=== PATIENT | male | born 1960 | race Caucasian/White ===

== ENCOUNTER 2017-08-03 08:08 | Inpatient (IN) | payer BC ==
[2017-08-03] VITALS (15 sets, daily range): BP systolic 132–156; BP diastolic 77–98
[~2017-08-03] VITALS: Ht 180.3 cm; Wt 79.6 kg
[~2017-08-03 08:08] MED LIST: AC500T; GLIM4TAB PO; HYDR-3454 PO; HYDR-3458 PO; IBUP-1773 PO; INSASP10V; INSU100V6 SQ; LANTUS; LEVO500T2 PO; PHEN-640 PO; SITA1TAB6 PO; ZLP5T; nyquil
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
[2017-08-03] MEDS ORDERED: fentaNYL INJECTION 100 MCG/2 ML AMP IM ONE (08:45)
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
[2017-08-03 10:11] LABS: BASOPHILS % (AUTO) 0 % (0-10); EOSINOPHILS # (AUTO) 0.1 10^3/uL (0.0-0.3); EOSINOPHILS % (AUTO) 1 % (0-10); LYMPHOCYTES # (AUTO) 1.6 X 10^3 (1.0-4.0); LYMPHOCYTES % (AUTO) 15 % (12-44); MEAN CORPUSCULAR HEMOGLOBIN 29 PG (25-34); MEAN CORPUSCULAR HGB CONC 35 G/DL (32-36); MEAN CORPUSCULAR VOLUME 82 FL (80-99); MEAN PLATELET VOLUME 10.4 FL (7.4-10.4); MONOCYTES # (AUTO) 0.5 X 10^3 (0.0-1.0); MONOCYTES % (AUTO) 4 % (0-12); NEUTROPHILS # (AUTO) 8.5 X 10^3 (1.8-7.8); NEUTROPHILS % (AUTO) 79 % (42-75); PLATELET COUNT 222 10^3/uL (130-400); RED BLOOD COUNT 5.14 10^6/uL (4.35-5.85); RED CELL DISTRIBUTION WIDTH 12.6 % (10.0-14.5); WHITE BLOOD COUNT 10.7 10^3/uL (4.3-11.0)
[2017-08-03] MEDS ORDERED: fentaNYL INJECTION 100 MCG/2 ML AMP IVP ONE (10:15)
[2017-08-03 10:30] LABS: ALANINE AMINOTRANSFERASE 20 U/L (0-55); ALBUMIN 4.6 GM/DL (3.2-4.5); ALCOHOL < 10 MG/DL (<10); ANION GAP 11 MMOL/L (5-14); ASPARTATE AMINO TRANSFERASE 19 U/L (5-34); BILIRUBIN,TOTAL 0.8 MG/DL (0.1-1.0); BLOOD UREA NITROGEN 16 MG/DL (7-18); BUN/CREATININE RATIO 16; CALCIUM 10.2 MG/DL (8.5-10.1); CARBON DIOXIDE 26 MMOL/L (21-32); CHLORIDE 105 MMOL/L (98-107); CREATININE SERUM 0.99 MG/DL (0.60-1.30); GFR ESTIMATED > 60; GLUCOSE 237 MG/DL (70-105); POTASSIUM 4.2 MMOL/L (3.6-5.0); SODIUM 142 MMOL/L (135-145); TOTAL PROTEIN 7.2 GM/DL (6.4-8.2)
--- NOTE | 2017-08-03 11:02 | Diagnostic Imaging Report ---
PROCEDURE: CT cervical spine without contrast. TECHNIQUE: Multiple contiguous axial images were obtained through the cervical spine without the use of intravenous contrast. Sagittal and coronal reformations were then performed. INDICATION: Neck pain. FINDINGS: There is suspected alignment of the cervical spine. The vertebral body heights are preserved. Disc heights are also preserved. There is satisfactory alignment at the facet joints. Also satisfactory alignment at the lateral masses of C1 and C2 is seen. Focal calcifications of the anterior longitudinal ligament at C5-C6 and C6-C7 levels noted. No significant posterior osteophytes seen. There is minimal rotation of C1 over C2, probably positional. No widening of the predental space. No fracture is seen. IMPRESSION: Slight rotation of C1 over C2 without widening of the predental space or fracture. This is likely positional. Dictated by: Dictated on workstation # [id number]
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
[2017-08-03] MEDS: fentaNYL INJECTION 100 MCG/2 ML AMP IVP PRN ×3 (11:58→16:34)
[2017-08-03] MEDS: NS IV 1000 ML 1,000 ML IV SCH ×2 (12:12→23:48)
[2017-08-03] MEDS: inSUlin ASPART (NovoLOG) 1 UNIT/0.01 ML (CHARGE PER UNIT) SC SCH ×3 (12:53→20:42)
[2017-08-03] MEDS ORDERED: IBUP-30 PO (13:13)
[2017-08-03] MEDS ORDERED: INFLUENZA TRIvalent 2017-2018 0.5 ML/45 MCG SYR IM ONE (13:15)
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
[2017-08-03] MEDS ORDERED: inSUlin ASPART (NovoLOG) 1 UNIT/0.01 ML (CHARGE PER UNIT) SC SCH (16:00)
[2017-08-03 17:08] LABS: BILIRUBIN,URINE NEGATIVE (NEGATIVE); KETONES,URINE NEGATIVE (NEGATIVE); LEUKOCYTE ESTERASE ,URINE NEGATIVE (NEGATIVE); NITRITE,URINE NEGATIVE (NEGATIVE); PH,URINE 6 (5-9); PROTEIN,URINE 1+ (NEGATIVE); UROBILINOGEN,URINE NORMAL (NORMAL)
[2017-08-03] MEDS: HYDROmorphone (DILAUDID) 2 MG/ML VIAL IV PRN ×3 (17:24→23:48)
[2017-08-03] MEDS: LIDOCAINE (LIDODERM) 5% PATCH TOP SCH (18:31)
[2017-08-03] MEDS: oxyCODONE/APAP 5/325MG (PERCOCET 5) TABLET PO PRN (18:38)
[2017-08-03] MEDS: inSUlin DETERMIR 1 UNIT/0.01 ML (LEVEMIR) CHARGE PER UNIT SQ SCH (20:42)
[2017-08-03] MEDS: LIDODERM PATCH REMOVAL TP SCH (20:43)
[2017-08-04] VITALS (25 sets, daily range): BP systolic 130–173; BP diastolic 66–111
[2017-08-04] MEDS: HYDROmorphone (DILAUDID) 2 MG/ML VIAL IV PRN ×5 (03:14→19:42)
[2017-08-04] MEDS: oxyCODONE/APAP 5/325MG (PERCOCET 5) TABLET PO PRN ×3 (03:15→13:28)
[2017-08-04 04:12] LABS: BASOPHILS % (AUTO) 0 % (0-10); EOSINOPHILS # (AUTO) 0.1 10^3/uL (0.0-0.3); EOSINOPHILS % (AUTO) 1 % (0-10); LYMPHOCYTES # (AUTO) 1.3 X 10^3 (1.0-4.0); LYMPHOCYTES % (AUTO) 14 % (12-44); MEAN CORPUSCULAR HEMOGLOBIN 29 PG (25-34); MEAN CORPUSCULAR HGB CONC 35 G/DL (32-36); MEAN CORPUSCULAR VOLUME 84 FL (80-99); MEAN PLATELET VOLUME 10.8 FL (7.4-10.4); MONOCYTES # (AUTO) 0.6 X 10^3 (0.0-1.0); MONOCYTES % (AUTO) 7 % (0-12); NEUTROPHILS # (AUTO) 7.3 X 10^3 (1.8-7.8); NEUTROPHILS % (AUTO) 78 % (42-75); PLATELET COUNT 213 10^3/uL (130-400); RED BLOOD COUNT 4.85 10^6/uL (4.35-5.85); RED CELL DISTRIBUTION WIDTH 12.7 % (10.0-14.5); WHITE BLOOD COUNT 9.4 10^3/uL (4.3-11.0)
[2017-08-04 04:31] LABS: ANION GAP 12 MMOL/L (5-14); BLOOD UREA NITROGEN 12 MG/DL (7-18); BUN/CREATININE RATIO 14; CARBON DIOXIDE 24 MMOL/L (21-32); CHLORIDE 107 MMOL/L (98-107); CREATININE SERUM 0.86 MG/DL (0.60-1.30); GFR ESTIMATED > 60; GLUCOSE 191 MG/DL (70-105); PHOSPHORUS 2.6 MG/DL (2.3-4.7); POTASSIUM 3.6 MMOL/L (3.6-5.0); SODIUM 143 MMOL/L (135-145)
[2017-08-04] MEDS: POTASSIUM CL 10MEQ/50ML IVPB 50 ML IV SCH (05:17)
[2017-08-04] MEDS: MAGNESIUM 1 GM/100 ML IVPB 100 ML IV SCH (05:18)
[2017-08-04] MEDS: KCL 20 MEQ TAB (K-DUR) PO SCH (05:18)
[2017-08-04] MEDS: inSUlin ASPART (NovoLOG) 1 UNIT/0.01 ML (CHARGE PER UNIT) SC SCH ×4 (05:19→21:27)
[2017-08-04] MEDS: lisINopril 5 MG (PRINIVIL) TABLET PO SCH (08:38)
[2017-08-04] MEDS: NS IV 1000 ML 1,000 ML IV SCH ×2 (08:39→17:47)
[2017-08-04] MEDS: LIDOCAINE (LIDODERM) 5% PATCH TOP SCH (08:39)
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
[2017-08-04] MEDS ORDERED: 1/2 NS IV SOLUTION 1,000 ML IV PRN (08:55)
[2017-08-04] MEDS ORDERED: ANTACID SUSP 30 ML UDC (MYLANTA) PO PRN (09:00)
[2017-08-04] MEDS ORDERED: SENNA W/DOCUSATE (SENOKOT S) TABLET PO PRN (09:00)
[2017-08-04] MEDS ORDERED: LORazepam INJ 2 MG/ML (ATIVAN) VIAL IM/IV PRN (09:00)
[2017-08-04] MEDS ORDERED: D5 1/2 NS 1000 ML IV SOLUTION 1,000 ML IV PRN (09:00)
[2017-08-04] MEDS ORDERED: LORazepam 1 MG (ATIVAN) TAB PO PRN (09:00)
[2017-08-04] MEDS ORDERED: KCL 20 MEQ TAB (K-DUR) PO ONE (09:00)
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
--- NOTE | 2017-08-04 13:14 | Progress Note (SOAP) ---
Subjective Date Seen by Provider: Aug 04, 2017 Time Seen by Provider: 13:12 Subjective/Events-last exam Feels ok in brace, but still hurting a fair bit. No neuro symptoms. Objective Exam Vital Signs Date Time Temp Pulse Resp B/P (MAP) Pulse Ox O2 Delivery O2 Flow Rate FiO2 08/04/17 07:20 98.4 87 12 160/100 97 Room Air 08/04/17 07:00 92 08/04/17 06:00 93 18 173/111 95 Room Air 08/04/17 05:17 98.9 Room Air 08/04/17 05:00 97 18 163/105 95 Room Air 08/04/17 04:00 99 12 162/102 98 Room Air 08/04/17 03:00 94 17 160/93 94 Room Air 08/04/17 02:00 92 13 153/97 94 Room Air 08/04/17 01:32 98.5 Room Air 08/04/17 01:00 91 08/04/17 01:00 93 12 150/97 93 Room Air 08/04/17 00:00 91 12 148/91 91 Room Air 08/03/17 23:00 92 16 146/95 94 Room Air 08/03/17 22:00 95 14 141/91 94 Room Air 08/03/17 21:00 97 16 144/90 95 Room Air 08/03/17 20:00 98 20 143/92 96 Room Air 08/03/17 19:30 98.9 Room Air 08/03/17 19:00 98 21 142/96 96 Room Air 08/03/17 19:00 98 08/03/17 18:00 98 18 132/88 96 Room Air 08/03/17 17:00 94 14 137/87 96 Room Air 08/03/17 16:02 99.0 08/03/17 16:00 94 26 145/98 97 Room Air 08/03/17 15:55 Room Air 08/03/17 15:00 99 20 138/87 96 Room Air Capillary Refill : Less Than 3 SecondsLess Than 3 Seconds General Appearance: No Apparent Distress Respiratory: Chest Non Tender Cardiovascular: Regular Rate, Rhythm Gastrointestinal: non tender, soft Extremity: Normal Capillary Refill, Normal Range of Motion Neurologic/Psychiatric: Alert, Oriented x3, No Motor/Sensory Deficits Other comments MRI with no soft tissue or ligamentous injury that is significant. L1 burst only, no high grade canal compromise. Results Lab Laboratory Tests 08/03/17 17:00: Urine Color YELLOW, Urine Clarity CLEAR, Urine pH 6, Urine Specific [place] 1.020, Urine Protein 1+H, Urine Glucose (UA) 4+H, Urine Ketones NEGATIVE, Urine Nitrite NEGATIVE, Urine Bilirubin NEGATIVE, Urine Urobilinogen NORMAL, Urine Leukocyte Esterase NEGATIVE, Urine RBC (Auto) NEGATIVE, Urine RBC NONE, Urine WBC NONE, Urine Squamous Epithelial Cells NONE, Urine Crystals NONE, Urine Bacteria NEGATIVE, Urine Casts NONE, Urine Mucus NEGATIVE, Urine Culture Indicated NO, Urine Opiates Screen NEGATIVE, Urine Oxycodone Screen NEGATIVE, Urine Methadone Screen NEGATIVE, Urine Propoxyphene Screen NEGATIVE, Urine Barbiturates Screen NEGATIVE, Ur Tricyclic Antidepressants Screen NEGATIVE, Urine Phencyclidine Screen NEGATIVE, Urine Amphetamines Screen NEGATIVE, Urine Methamphetamines Screen NEGATIVE, Urine Benzodiazepines Screen NEGATIVE, Urine Cocaine Screen NEGATIVE, Urine Cannabinoids Screen NEGATIVE 08/03/17 17:28: Glucometer 204H 08/04/17 03:45: White Blood Count 9.4, Red Blood Count 4.85, Hemoglobin 14.2, Hematocrit 41, Mean Corpuscular Volume 84, Mean Corpuscular Hemoglobin 29, Mean Corpuscular Hemoglobin Concent 35, Red Cell Distribution Width 12.7, Platelet Count 213, Mean Platelet Volume 10.8H, Neutrophils (%) (Auto) 78H, Lymphocytes (%) (Auto) 14, Monocytes (%) (Auto) 7, Eosinophils (%) (Auto) 1, Basophils (%) (Auto) 0, Neutrophils # (Auto) 7.3, Lymphocytes # (Auto) 1.3, Monocytes # (Auto) 0.6, Eosinophils # (Auto) 0.1, Basophils # (Auto) 0.0, Sodium Level 143, Potassium Level 3.6, Chloride Level 107, Carbon Dioxide Level 24, Anion Gap 12, Blood Urea Nitrogen 12, Creatinine 0.86, Estimat Glomerular Filtration Rate > 60, BUN/ Creatinine Ratio 14, Glucose Level 191H, Calcium Level 9.0, Phosphorus Level 2.6 , Magnesium Level 2.0 08/04/17 11:11: Glucometer 163H Assessment/Plan Assessment/Plan Assess & Plan/Chief Complaint L1 burst Fracture: Work on mobilization in brace Pain control Clinical Quality Measures DVT/VTE Risk/Contraindication: Risk Factor Score Per Nursin RFS Level Per Nursing on Admit: 4+=Very High CARLOS ALBERTO BURKETT MD Aug 04, 2017 1:14 pm
[2017-08-04] MEDS ORDERED: oxyCODONE/APAP 5/325MG (PERCOCET 5) TABLET ONE (13:17)
[2017-08-04] MEDS: ONDANSETRON 4 MG/2 ML (SDV) Z0FRAN IV PRN (15:17)
[2017-08-04] MEDS: LORazepam INJ 2 MG/ML (ATIVAN) VIAL IV PRN ×2 (18:23→19:47)
[2017-08-04] MEDS: ONDANSETRON 4 MG (ZOFRAN) ORAL DISSOLVE TAB SL PRN (19:42)
[2017-08-04] MEDS: inSUlin DETERMIR 1 UNIT/0.01 ML (LEVEMIR) CHARGE PER UNIT SQ SCH (21:27)
[2017-08-04] MEDS: DOCUSATE SODIUM 100 MG (COLACE) CAP PO SCH (21:28)
[2017-08-04] MEDS: LIDODERM PATCH REMOVAL TP SCH (21:28)
[2017-08-05] VITALS (22 sets, daily range): BP systolic 122–167; BP diastolic 76–111
[2017-08-05] MEDS: oxyCODONE/APAP 5/325MG (PERCOCET 5) TABLET PO PRN ×3 (01:49→22:14)
[2017-08-05] MEDS: LORazepam INJ 2 MG/ML (ATIVAN) VIAL IV PRN ×2 (01:49→04:18)
[2017-08-05] MEDS: ONDANSETRON 4 MG/2 ML (SDV) Z0FRAN IV PRN ×2 (01:50→11:59)
[2017-08-05] MEDS: NS IV 1000 ML 1,000 ML IV SCH (03:56)
[2017-08-05] MEDS: HYDROmorphone (DILAUDID) 2 MG/ML VIAL IV PRN ×3 (03:57→18:44)
[2017-08-05 05:01] LABS: BASOPHILS % (AUTO) 0 % (0-10); EOSINOPHILS # (AUTO) 0.2 10^3/uL (0.0-0.3); EOSINOPHILS % (AUTO) 2 % (0-10); LYMPHOCYTES # (AUTO) 1.5 X 10^3 (1.0-4.0); LYMPHOCYTES % (AUTO) 14 % (12-44); MEAN CORPUSCULAR HEMOGLOBIN 29 PG (25-34); MEAN CORPUSCULAR HGB CONC 34 G/DL (32-36); MEAN CORPUSCULAR VOLUME 85 FL (80-99); MEAN PLATELET VOLUME 10.8 FL (7.4-10.4); MONOCYTES # (AUTO) 0.7 X 10^3 (0.0-1.0); MONOCYTES % (AUTO) 6 % (0-12); NEUTROPHILS # (AUTO) 8.2 X 10^3 (1.8-7.8); NEUTROPHILS % (AUTO) 77 % (42-75); PLATELET COUNT 213 10^3/uL (130-400); RED BLOOD COUNT 4.74 10^6/uL (4.35-5.85); RED CELL DISTRIBUTION WIDTH 12.5 % (10.0-14.5); WHITE BLOOD COUNT 10.6 10^3/uL (4.3-11.0)
[2017-08-05 05:19] LABS: ANION GAP 12 MMOL/L (5-14); BLOOD UREA NITROGEN 11 MG/DL (7-18); BUN/CREATININE RATIO 15; CALCIUM 8.6 MG/DL (8.5-10.1); CARBON DIOXIDE 19 MMOL/L (21-32); CHLORIDE 108 MMOL/L (98-107); CREATININE SERUM 0.73 MG/DL (0.60-1.30); GFR ESTIMATED > 60; GLUCOSE 201 MG/DL (70-105); MAGNESIUM 1.7 MG/DL (1.8-2.4); PHOSPHORUS 2.1 MG/DL (2.3-4.7); POTASSIUM 3.8 MMOL/L (3.6-5.0); SODIUM 139 MMOL/L (135-145)
[2017-08-05] MEDS: KCL 20 MEQ TAB (K-DUR) PO SCH (05:36)
[2017-08-05] MEDS: POTASSIUM CL 10MEQ/50ML IVPB 50 ML IV SCH (05:36)
[2017-08-05] MEDS: MAGNESIUM 1 GM/100 ML IVPB 100 ML IV SCH ×3 (05:36→06:46)
[2017-08-05] MEDS: inSUlin ASPART (NovoLOG) 1 UNIT/0.01 ML (CHARGE PER UNIT) SC SCH ×5 (05:37→20:45)
[2017-08-05] MEDS ORDERED: LABETALOL HCL 20 MG/4 ML VIAL IV ONE (06:00)
[2017-08-05] MEDS: THIAMINE 100 MG (VITAMIN B-1) TAB PO SCH (09:00)
[2017-08-05] MEDS: DOCUSATE SODIUM 100 MG (COLACE) CAP PO SCH ×2 (09:00→20:06)
[2017-08-05] MEDS: lisINopril 5 MG (PRINIVIL) TABLET PO SCH (09:00)
[2017-08-05] MEDS: MULTIVIT W/MINERALS TAB (THERAGRAN M) PO SCH (09:01)
[2017-08-05] MEDS: ONDANSETRON 4 MG (ZOFRAN) ORAL DISSOLVE TAB SL PRN ×2 (09:01→16:04)
[2017-08-05] MEDS: LIDOCAINE (LIDODERM) 5% PATCH TOP SCH (09:01)
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
--- NOTE | 2017-08-05 11:14 | Progress Note (SOAP) ---
Subjective Date Seen by Provider: Aug 05, 2017 Time Seen by Provider: 11:12 Subjective/Events-last exam [place] from Ativan protocol. Was up with brace yesterday, doing ok. History from who is nurse and very involved. Objective Exam Vital Signs Date Time Temp Pulse Resp B/P (MAP) Pulse Ox O2 Delivery O2 Flow Rate FiO2 08/05/17 09:00 113 24 140/89 95 Room Air 08/05/17 08:00 115 24 146/96 94 Room Air 08/05/17 07:00 112 08/05/17 07:00 99.1 115 29 143/94 94 Room Air 08/05/17 06:00 116 23 125/83 92 Room Air 08/05/17 05:00 144 23 144/87 95 Room Air 08/05/17 04:00 129 25 166/111 96 Room Air 08/05/17 03:00 129 30 167/104 96 Room Air 08/05/17 02:00 120 22 163/109 97 Room Air 08/05/17 01:00 110 11 144/100 95 Room Air 08/05/17 01:00 111 08/05/17 00:00 107 19 138/90 98 Room Air 08/04/17 23:00 112 23 130/94 97 Room Air 08/04/17 22:00 112 19 135/80 97 Room Air 08/04/17 21:00 115 19 150/95 96 Room Air 08/04/17 20:00 115 21 145/96 96 Room Air 08/04/17 19:49 97.5 Room Air 08/04/17 19:00 118 08/04/17 19:00 112 22 154/96 95 Room Air 08/04/17 18:00 103 22 164/103 97 Room Air 08/04/17 17:00 98 22 146/86 95 Room Air 08/04/17 16:00 98.6 08/04/17 16:00 92 21 146/98 97 Room Air 08/04/17 15:00 93 24 154/94 96 Room Air 08/04/17 14:00 90 20 149/66 97 Room Air 08/04/17 13:00 89 17 154/100 95 Room Air 08/04/17 13:00 94 08/04/17 12:00 92 19 157/99 97 Room Air 08/04/17 12:00 98.0 Capillary Refill : Less Than 3 SecondsLess Than 3 Seconds General Appearance: No Apparent Distress Respiratory: No Accessory Muscle Use, No Respiratory Distress Cardiovascular: Regular Rate, Rhythm Neurologic/Psychiatric: No Motor/Sensory Deficits, Depressed Affect Other comments TLSO in place. Results Lab Laboratory Tests 08/04/17 17:01: Glucometer 232H 08/04/17 21:25: Glucometer 178H 08/05/17 04:30: White Blood Count 10.6, Red Blood Count 4.74, Hemoglobin 13.7, Hematocrit 40, Mean Corpuscular Volume 85, Mean Corpuscular Hemoglobin 29, Mean Corpuscular Hemoglobin Concent 34, Red Cell Distribution Width 12.5, Platelet Count 213, Mean Platelet Volume 10.8H, Neutrophils (%) (Auto) 77H, Lymphocytes (%) (Auto) 14, Monocytes (%) (Auto) 6, Eosinophils (%) (Auto) 2, Basophils (%) (Auto) 0, Neutrophils # (Auto) 8.2H, Lymphocytes # (Auto) 1.5, Monocytes # (Auto) 0.7, Eosinophils # (Auto) 0.2, Basophils # (Auto) 0.0, Sodium Level 139, Potassium Level 3.8, Chloride Level 108H, Carbon Dioxide Level 19L, Anion Gap 12, Blood Urea Nitrogen 11, Creatinine 0.73, Estimat Glomerular Filtration Rate > 60, BUN/ Creatinine Ratio 15, Glucose Level 201H, Calcium Level 8.6, Phosphorus Level 2.1L, Magnesium Level 1.7L Microbiology 08/03/17 MRSA Screen - Final, Complete Assessment/Plan Assessment/Plan Assess & Plan/Chief Complaint L1 burst Fracture: ETOH Withdrawl Nothing different from our standpoint. Continue current care. Clinical Quality Measures DVT/VTE Risk/Contraindication: Risk Factor Score Per Nursin RFS Level Per Nursing on Admit: 4+=Very High CARLOS ALBERTO BURKETT MD Aug 05, 2017 11:14 am
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
[2017-08-05] MEDS: ENOXAPARIN 40 MG/0.4 ML (LOVENOX) SYR SC SCH (14:23)
[2017-08-05] MEDS: inSUlin DETERMIR 1 UNIT/0.01 ML (LEVEMIR) CHARGE PER UNIT SQ SCH (20:45)
[2017-08-05] MEDS: LIDODERM PATCH REMOVAL TP SCH (20:45)
[2017-08-06] VITALS (21 sets, daily range): BP systolic 121–169; BP diastolic 87–106
[2017-08-06] MEDS: oxyCODONE/APAP 5/325MG (PERCOCET 5) TABLET PO PRN ×5 (02:13→18:04)
[2017-08-06] MEDS ORDERED: hydrALAZINE (APESOLINE) 20 MG/ML VIAL ONE (03:43)
[2017-08-06] MEDS ORDERED: hydrALAZINE (APESOLINE) 20 MG/ML VIAL IV ONE (04:15)
[2017-08-06] MEDS: HYDROmorphone (DILAUDID) 2 MG/ML VIAL IV PRN ×2 (04:59→12:13)
[2017-08-06] MEDS: MULTIVIT W/MINERALS TAB (THERAGRAN M) PO SCH (06:12)
[2017-08-06] MEDS: THIAMINE 100 MG (VITAMIN B-1) TAB PO SCH (06:13)
[2017-08-06 06:14] LABS: ANION GAP 9 MMOL/L (5-14); BLOOD UREA NITROGEN 15 MG/DL (7-18); BUN/CREATININE RATIO 18; CALCIUM 8.9 MG/DL (8.5-10.1); CARBON DIOXIDE 23 MMOL/L (21-32); CHLORIDE 106 MMOL/L (98-107); CREATININE SERUM 0.83 MG/DL (0.60-1.30); GFR ESTIMATED > 60; GLUCOSE 201 MG/DL (70-105); MAGNESIUM 1.9 MG/DL (1.8-2.4); SODIUM 138 MMOL/L (135-145)
[2017-08-06] MEDS: inSUlin ASPART (NovoLOG) 1 UNIT/0.01 ML (CHARGE PER UNIT) SC SCH ×4 (06:19→21:15)
[2017-08-06] MEDS: POTASSIUM CL 10MEQ/50ML IVPB 50 ML IV SCH (06:38)
[2017-08-06] MEDS: KCL 20 MEQ TAB (K-DUR) PO SCH (06:39)
[2017-08-06] MEDS: MAGNESIUM 1 GM/100 ML IVPB 100 ML IV SCH (06:39)
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
[2017-08-06] MEDS ORDERED: MILK OF MAGNESIA 400 MG/5 ML 30 ML UDC PO NR (07:00)
[2017-08-06] MEDS: DOCUSATE SODIUM 100 MG (COLACE) CAP PO SCH ×2 (07:38→21:16)
[2017-08-06] MEDS: lisINopril 5 MG (PRINIVIL) TABLET PO SCH (10:15)
[2017-08-06] MEDS: LIDOCAINE (LIDODERM) 5% PATCH TOP SCH (10:16)
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
[2017-08-06] MEDS: ENOXAPARIN 40 MG/0.4 ML (LOVENOX) SYR SC SCH (12:03)
--- NOTE | 2017-08-06 14:07 | Physical Therapy Daily Note ---
PT Daily Note-Current Subjective Patient states his soreness is about the same as it was this a.m. Patient is laying in bed and agrees to PT. Pain Numeric Pain Scale: 9 Location: Left Location Body Site: Back Comment: localized back pain Appearance Patient appears healthy. He is left post tx in his chair with his son. Mental Status Patient Orientation: Normal For Age Transfers Functional [place] Measure 0=Not Assessed/NA 4=Minimal Assistance 1=Total Assistance 5=Supervision or Setup 2=Maximal Assistance 6=Modified [place] 3=Moderate Assistance 7=Complete IndependenceIRFPAI Quality Coding Scale 6 Independent with activity with or without an assistive device 5 Patient requires set up or clean up by helper. Patient completes activity by themselves 4 Supervision or touching assist (CGA). [place] provide cues , steadying assist 3 The helper provides less than half the effort to complete the activity 2 The helper provides more than half the effort to complete the activity 1 Dependent. The helper does all the effort to complete an activity 7 Patient refused to complete or attempt activity 9 The patient did not perform the activity before the current illness or injury 88 Not attempted due to Medical conditions or safety concerns Transfers (B, C, W/C) (FIM): 4 Scootin Rollin Supine to/from Sit: 5 Sit to/from Stand: 4 Patient requires CGA to min assist with standing due to intense pain from positional change. Weight Bearing Right Lower Extremity: Right Weight Bearing/Tolerated Left Lower Extremity: Left Weight Bearing/Tolerated Gait Training Gait (FIM): 5 Distance: >300' Gait Level of Assist: 5 Gait Persons Needed: 1 Gait Assistive Device: FWW Patient is unsteady with first few steps after rising to stand and when turning. Patient eventually walks with a more normal reciprocal gait. Assessment Current Status: Good Progress Patient appears to tolerate transfers and gait better this p.m. than in the a.m. PT will continue to work with patient on gait tolerance as well as safety and education. PT Senior Living Goals Senior Living Goals PT Senior Living Goals Time Frame: Aug 13, 2017 Transfers (B,C,W/C) (FIM): 6 Gait (FIM): 6 Distance: >300' Gait Level of Assist: 6 Gait Assistive Device: FWW PT Plan Problem List Problem List: Activity Tolerance, Functional Strength, Safety, Balance, Gait Treatment/Plan Treatment Plan: Continue Plan of Care Treatment Plan: Functional Activity Alejandro, Functional Strength, Gait, Therapeutic Exercise Treatment Duration: Aug 13, 2017 Frequency: 11 times per week Estimated Hrs Per Day: .5 hour per day Patient and/or Family Agrees t: Yes Time/GCodes Time In: 1325 Time Out: 1345 Total Billed Treatment Time: 20 Total Billed Treatment 1 visit GT 20 min TANYA PINEDO PT Aug 06, 2017 14:06
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
[2017-08-06] MEDS: inSUlin DETERMIR 1 UNIT/0.01 ML (LEVEMIR) CHARGE PER UNIT SQ SCH (21:16)
[2017-08-06] MEDS: LIDODERM PATCH REMOVAL TP SCH (21:19)
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
[2017-08-07] VITALS: BP 146/81
[2017-08-07] MEDS: oxyCODONE/APAP 5/325MG (PERCOCET 5) TABLET PO PRN ×3 (00:25→08:45)
[2017-08-07 04:00] VITALS: BP 144/78
[2017-08-07 06:37] LABS: ANION GAP 11 MMOL/L (5-14); BLOOD UREA NITROGEN 12 MG/DL (7-18); BUN/CREATININE RATIO 16; CALCIUM 8.9 MG/DL (8.5-10.1); CARBON DIOXIDE 23 MMOL/L (21-32); CHLORIDE 106 MMOL/L (98-107); CREATININE SERUM 0.76 MG/DL (0.60-1.30); GFR ESTIMATED > 60; GLUCOSE 157 MG/DL (70-105); POTASSIUM 3.8 MMOL/L (3.6-5.0); SODIUM 140 MMOL/L (135-145)
[2017-08-07] MEDS: THIAMINE 100 MG (VITAMIN B-1) TAB PO SCH (06:42)
[2017-08-07] MEDS: MULTIVIT W/MINERALS TAB (THERAGRAN M) PO SCH (06:42)
[2017-08-07] MEDS: inSUlin ASPART (NovoLOG) 1 UNIT/0.01 ML (CHARGE PER UNIT) SC SCH (06:42)
[2017-08-07 07:53] VITALS: BP 165/91
[2017-08-07] MEDS: lisINopril 5 MG (PRINIVIL) TABLET PO SCH (08:33)
[2017-08-07] MEDS: DOCUSATE SODIUM 100 MG (COLACE) CAP PO SCH (08:33)
[2017-08-07] MEDS: LIDOCAINE (LIDODERM) 5% PATCH TOP SCH (08:33)
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
[2017-08-07] MEDS ORDERED: LISI-556 PO (10:17)
--- NOTE | 2017-08-07 10:18 | Discharge Instructions ---
Discharge Instructions Patient Instructions Goal/Follow Up Appt: Mobilization for home discharge Activity & Diet Discharge Diet: ADA Diet Activity as Tolerated: Yes BLAIRE MONTANEZ MD Aug 07, 2017 10:18
[2017-08-07] MEDS ORDERED: HYDR2TAB6 PO (10:23)
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
== END 2017-08-07 11:00 | DRG 552 ==
LOC: EDUNIT# 08:08 → ER 08:09 → ICU 10:26 → 4TH 08-06 18:28
PROVIDERS: ADMIT Surgery; ATTEND Surgery
DX: S32.011A Stable burst fracture of first lumbar vertebra, initial encounter for closed fracture (principal); E11.9 Type 2 diabetes mellitus without complications; Z79.4 Long term (current) use of insulin; F10.230 Alcohol dependence with withdrawal, uncomplicated; K59.00 Constipation, unspecified; V57.0XXA Driver of pick-up truck or van injured in collision with fixed or stationary object in nontraffic accident, initial encounter
CPT/HCPCS: 36415; 72125; 72148; 74176; 80048; 80053; 80306; 80320; 81000; 82962; 83735; 84100; 85025; 87081; 94664; 96372; 96374

== ENCOUNTER 2017-08-07 10:07 | Inpatient (IN) | payer BC ==
[~2017-08-07] VITALS: Ht 180.3 cm; Wt 67.9 kg
[~2017-08-07 10:07] MED LIST changes: +IBUP-30 PO
[2017-08-07] MEDS ORDERED: LISI-556 PO (10:17)
[2017-08-07] MEDS ORDERED: HYDR2TAB6 PO (10:23)
[2017-08-07 11:00] VITALS: BP 173/110
[2017-08-07 11:10] VITALS: BP 180/90
[2017-08-07] MEDS ORDERED: 1/2 NS IV SOLUTION 1,000 ML IV PRN (11:45)
[2017-08-07] MEDS ORDERED: LORazepam 1 MG (ATIVAN) TAB PO PRN (11:45)
[2017-08-07] MEDS ORDERED: ANTACID SUSP 30 ML UDC (MYLANTA) PO PRN (11:45)
[2017-08-07] MEDS ORDERED: LORazepam INJ 2 MG/ML (ATIVAN) VIAL IM/IV PRN (11:45)
[2017-08-07] MEDS ORDERED: ONDANSETRON 4 MG (ZOFRAN) ORAL DISSOLVE TAB SL PRN (11:45)
--- NOTE | 2017-08-07 11:50 | Physical Therapy Progress Note ---
Therapy Progress Note Evaluation attempted but patient had elevated blood pressure of 180/100. Will attempt evaluation again after blood pressure is under control. SHARI DC PT Aug 07, 2017 11:50
[2017-08-07] MEDS: lisINopril 20 MG (ZESTRIL) TAB PO SCH (12:09)
--- NOTE | 2017-08-07 12:47 | Occ Therapy Progress Note ---
Therapy Progress Note Evaluation initiated when pt arrived to ARU. Pt requested to transfer from w/c to bed secondary to pain. Pt required min assist for task. Nurse aide present to take vitals. BP was elevated and pt was placed on hold for therapies at this time per RN. Will attempt to complete evaluation when BP is under control. 1 visit, 10minutes KENZIE ROTH OT Aug 07, 2017 12:47
[2017-08-07 12:50] VITALS: BP 160/80
[2017-08-07] MEDS: HYDROmorphone (DILAUDID) 2 MG TAB PO SCH ×3 (13:23→20:55)
[2017-08-07] MEDS: ENOXAPARIN 40 MG/0.4 ML (LOVENOX) SYR SC SCH (13:25)
--- NOTE | 2017-08-07 13:47 | Physical Therapy Progress Note ---
Therapy Progress Note Patient continues to have elevated BP 187/100. PT to evaluate when BP is stable. TANYA PINEDO PT Aug 07, 2017 13:47
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
--- NOTE | 2017-08-07 13:57 | Speech Therapy Progress Note ---
Therapy Progress Note Speech pathology consult received and the patient's chart was reviewed. At this time, the patient is placed on medical hold due to elevated blood pressure. Speech pathology will reattempt initial evaluation, as able. ADRIAN DELGADO Aug 07, 2017 13:57
[2017-08-07] MEDS ORDERED: INFLUENZA TRIvalent 2017-2018 0.5 ML/45 MCG SYR IM ONE (15:45)
[2017-08-07] MEDS: GLIMEPIRIDE 4 MG (AMARYL) TAB PO SCH (16:18)
[2017-08-07] MEDS: metFORMIN 500 MG (GLUCOPHAGE) TAB PO SCH (16:19)
[2017-08-07] MEDS: IBUPROFEN 600 MG (MOTRIN) TAB PO PRN (16:19)
[2017-08-07] MEDS: inSUlin ASPART (NovoLOG) 1 UNIT/0.01 ML (CHARGE PER UNIT) SC SCH ×2 (16:19→21:01)
[2017-08-07 18:08] VITALS: BP 170/96
--- NOTE | 2017-08-07 20:19 | PM&R Post Admission Assessment ---
Post Admission Physician Asses The preadmission screen agrees with the post admission assessment that the patient is a good candidate for inpatient rehabilitation. The patient will have a comprehensive program of inpatient rehabilitation with a goal of maximizing level of functional independence prior to discharge home with spouse. The patient will have PT/OT ninety minutes per day, each discipline, five days a week for gait, strengthening, conditioning, balance, ADLs, any patient/family/caregiver training as necessary. Speech therapy to do cognitive assessment and treat as indicated. Rehabilitation nursing to assist with bowel, bladder, skin, wound care, medication administration, pain management. Senior Etl Developer to assist with discharge planning, community reentry. SCD's for DVT prophylaxis. He appears to be well motivated to participate in three hours of therapy a day. He should be able to tolerate three hours of therapy a day from a medical standpoint. He should benefit from the three hours of therapy a day. He has a reasonable discharge plan, reasonable discharge rehabilitation goals and a supportive family. He has various comorbidities that need to be closely monitored with medications and treatments adjusted on a daily basis as needed. These include: DM Pain management Poorly controlled HTN Barriers to discharge for this patient who had been independent prior to this are for him to be modified independent to supervision for ADLs and mobility skills prior to discharge home with spouse, so as to lessen the burden of the caregivers.Consideration must be given to the fact that the TLSO may limit his complete [place] until d/cd by orthospine. Risks for this patient include: 1. Fall 2. Fracture 3. DVT 4. Pulmonary embolism 5. Wound infection 6. Skin breakdown 7. Contractures 8. Poorly controlled pain 9. Urinary retention 10. UTI 11. Respiratory infection 12. Aspiration 13. Worsening control of HTN 14.Poorly controlled DM 15. Worsening Compression fracture with mobilization Estimated Length of Stay: 10-14 days Prognosis: Rehab prognosis appears good for goal of discharge home with spouse modified independent to supervision for ADLs and mobility skills.taking into consideration the need for TLSO short term GUERO ESPINAL MD Aug 07, 2017 20:19
[2017-08-07] MEDS: DOCUSATE SODIUM 100 MG (COLACE) CAP PO SCH (20:55)
[2017-08-07] MEDS: inSUlin DETERMIR 1 UNIT/0.01 ML (LEVEMIR) CHARGE PER UNIT SQ SCH (21:02)
[2017-08-07] MEDS: LIDODERM PATCH REMOVAL TP SCH ×2 (21:03→21:17)
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
[2017-08-08] MEDS: IBUPROFEN 600 MG (MOTRIN) TAB PO PRN ×4 (01:22→23:58)
[2017-08-08] MEDS: inSUlin ASPART (NovoLOG) 1 UNIT/0.01 ML (CHARGE PER UNIT) SC SCH ×4 (05:43→20:53)
[2017-08-08 05:58] VITALS: BP 157/94
[2017-08-08] MEDS: MULTIVIT W/MINERALS TAB (THERAGRAN M) PO SCH (06:23)
[2017-08-08] MEDS: GLIMEPIRIDE 4 MG (AMARYL) TAB PO SCH ×2 (06:24→16:14)
[2017-08-08] MEDS: metFORMIN 500 MG (GLUCOPHAGE) TAB PO SCH ×2 (06:24→16:15)
[2017-08-08] MEDS: DOCUSATE SODIUM 100 MG (COLACE) CAP PO SCH ×2 (08:27→20:41)
[2017-08-08] MEDS: LIDOCAINE (LIDODERM) 5% PATCH TOP SCH ×2 (08:27→09:06)
[2017-08-08] MEDS: HYDROmorphone (DILAUDID) 2 MG TAB PO SCH ×3 (08:27→20:42)
[2017-08-08] MEDS: lisINopril 20 MG (ZESTRIL) TAB PO SCH (08:27)
[2017-08-08] MEDS: LINAGLIPTIN (TRADJENTA) 5 MG TABLET PO SCH (08:27)
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
[2017-08-08] MEDS ORDERED: LACTULOSE SYRUP 10GM/15ML (ENULOSE) 30ML UDC PO PRN (11:15)
[2017-08-08] MEDS ORDERED: BISACODYL 10 MG SUPP (DULCOLAX) PR PRN (11:15)
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
[2017-08-08] MEDS: amLODIPine 5 MG (NORVASC) TAB PO SCH (11:23)
[2017-08-08] MEDS: ENOXAPARIN 40 MG/0.4 ML (LOVENOX) SYR SC SCH (12:15)
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
--- NOTE | 2017-08-08 12:58 | Occupational Ther Daily Note ---
OT Current Status-Daily Note Subjective Pt. states that he did not sleep well last night. Appearance Pt. in bed. Agrees to work with OT. Mental Status/Objective Patient Orientation: Person, Place, Time, Situation Functional [place] Measure 0=Not Assessed/NA 4=Minimal Assistance 1=Total Assistance 5=Supervision or Setup 2=Maximal Assistance 6=Modified [place] 3=Moderate Assistance 7=Complete [place] Attachments: IV ADL-Treatment Functional [place] Measure 0=Not Assessed/NA 4=Minimal Assistance 1=Total Assistance 5=Supervision or Setup 2=Maximal Assistance 6=Modified [place] 3=Moderate Assistance 7=Complete IndependenceIRFPAI Quality Coding Scale 6 Independent with activity with or without an assistive device 5 Patient requires set up or clean up by helper. Patient completes activity by themselves 4 Supervision or touching assist (CGA). [place] provide cues , steadying assist 3 The helper provides less than half the effort to complete the activity 2 The helper provides more than half the effort to complete the activity 1 Dependent. The helper does all the effort to complete an activity 7 Patient refused to complete or attempt activity 9 The patient did not perform the activity before the current illness or injury 88 Not attempted due to Medical conditions or safety concerns Grooming (FIM): 5 (Set up at bed level.) Bathing (FIM): 4 (Min assist to wash feet only at bed/supine level.) Shower/Bathe Self (QC): 4 Upper Body (FIM): 2 (Overall, pt. requires max assist to don TLSO brace in supine, and mod assist to doff/don shirt while supine in bed.) Upper Body Dressing (QC): 2 Lower Body Dressing (FIM): 3 (Mod assist overall in supine position using AE to don/doff clothing.) Lower Body Dressing (QC): 3 On/Off Footwear (QC): 2 Transfers (B, C, W/C) (FIM): 4 Due to strict precautions of pt. having to have TLSO brace on when out of bed, pt. has to spongebathe while in supine position until this can be clarified with physician. BP taken throughout treatment. BP is 163/94, 166/93, 164/94. When pt. rolled to side, BP taken again and 78/59. Nursing called pt. in room. At this time, TLSO brace was donned in supine position and then pt. sat on side of bed with min assist. BP taken again and is 178/90. Pt laid back down with SBA and brace on. All needs met and spouse in room. Education OT Patient Education: Correct positioning, Modified ADL techniques, Progress toward Goal/Update tx plan, Purpose of tx/functional activities, Reviewed precautions, Rehab process, Transfer techniques, Use of adapted equipment Teaching Recipient: Patient Teaching Methods: Demonstration, Discussion Response to Teaching: Verbalize Understanding, Return Demonstration OT Short Term Goals Short Term Goals Time Frame: Aug 14, 2017 Eating(FIM): 6 Grooming(FIM): 6 Bathing(FIM): 5 Upper Body Dressing(FIM): 5 Lower Body Dressing(FIM): 5 Toileting(FIM): 5 Transfers (B,C,W/C) (FIM): 6 Toilet/Commode Transfer(FIM): 5 Shower Transfer(FIM): 4 Additional Short Term Goals: 1-Demonstrate ADL Tasks, 2-Verbalize Understanding , 3-ImproveStrength/Alejandro 1=Demonstrate adherence to instructed precautions during ADL tasks. 2=Patient will verbalize/demonstrate understanding of assistive devices/ modifications for ADL. 3=Patient will improve strength/tolerance for activity to enable patient to perform ADL's. OT Private Duty Rn Goals Private Duty Rn Goals Time Frame: Aug 21, 2017 Eating (FIM): 6 Eating (QC): 6 Groomin Oral Hygiene (QC): 6 Bathing(FIM): 5 Shower/Bathe Self (QC): 5 Upper Body Dressing(FIM): 6 Upper Body Dressing (QC): 5 Lower Body Dressing(FIM): 6 Lower Body Dressing (QC): 5 On/Off Footwear (QC): 5 Toileting(FIM): 6 Toileting Hygiene (QC): 6 Transfers (B,C,W/C) (FIM): 6 Toilet/Commode Transfer(FIM): 6 Toilet/Commode Transfer (QC): 5 Shower Transfer(FIM): 5 Additional Goals: 1-Demonstrate ADL Tasks, 2-Verbalize Understanding, 3- ImproveStrength/Alejandro 1=Demonstrate adherence to instructed precautions during ADL tasks. 2=Patient will verbalize/demonstrate understanding of assistive devices/ modifications for ADL. 3=Patient will improve strength/tolerance for activity to enable patient to perform ADL's. OT Education/Plan Problem List/Assessment Assessment: Decreased Activ Tolerance, Decreased UE Strength, Dependent Transfers, Impaired Bed Mobility, Impaired I ADL's, Impaired Self-Care Skills, Restricted Funct UE ROM Discharge Recommendations Plan/Recommendations: Continue POC Therapy D/C Recommendations: Home w/ Family Support, Occupational Therapy Home Care Equpiment Recommendations-D/C: Extended Bath Bench, Hip Kit Target Placement Home with spouse. Treatment Plan/Plan of Care Treatment,Training & Education: Yes Patient would benefit from OT for education, treatment and training to promote independence in ADL's, mobility, safety and/or upper extremity function for ADL' s. Plan of Care: ADL Retraining, Functional Mobility, Group Exercise/Act as Ind, UE Funct Exercise/Act Treatment Duration: Aug 21, 2017 Frequency: At least 5 of 7 days/Wk (IRF) Estimated Hrs Per Day: 1.5 hours per day Agreement: Yes Rehab Potential: Fair Time/GCodes Start Time: 08:30 Stop Time: 09:35 Total Time Billed (hr/min): 65 Billed Treatment Time 1, ADL x 4 HILARIA GOMEZ OT Aug 08, 2017 12:58
--- NOTE | 2017-08-08 15:36 | Physical Therapy Daily Note ---
PT Daily Note-Current Subjective Patient is in quite a bit of pain upon PT entering the room after just working with OT this p.m. Patient agrees to PT. Pain Numeric Pain Scale: 8 Location: Left Location Body Site: Back Mental Status Patient Orientation: Person, Place, Situation Transfers Functional Faith Measure 0=Not Assessed/NA 4=Minimal Assistance 1=Total Assistance 5=Supervision or Setup 2=Maximal Assistance 6=Modified [place] 3=Moderate Assistance 7=Complete IndependenceIRFPAI Quality Coding Scale 6 Independent with activity with or without an assistive device 5 Patient requires set up or clean up by helper. Patient completes activity by themselves 4 Supervision or touching assist (CGA). [place] provide cues , steadying assist 3 The helper provides less than half the effort to complete the activity 2 The helper provides more than half the effort to complete the activity 1 Dependent. The helper does all the effort to complete an activity 7 Patient refused to complete or attempt activity 9 The patient did not perform the activity before the current illness or injury 88 Not attempted due to Medical conditions or safety concerns No transfers observed. Patient remained supine for the treatment due to current pain. Weight Bearing Right Lower Extremity: Right Weight Bearing/Tolerated Left Lower Extremity: Left Weight Bearing/Tolerated Gait Training Does the Patient Walk?: Yes Exercises Supine Ex: Lower trunk rotation, Knee to chest, Straight leg raise, Hip abd/add Supine Reps: 20 (patient also performed SKTC and piriformis stretches 10 x 15") Assessment Current Status: Poor Progress Patient is still in significant pain due to burst fx of L1 vertebrae. PT will progress patient exercise as patient's pain tolerates. PT Short Term Goals Short Term Goals Time Frame: Aug 15, 2017 Transfers (B,C,W/C) (FIM): 6 Gait (FIM): 5 Gait Distance Comment: >300' Gait Level of Assist: 5 Gait Assistive Device: FWW PT Fci Goals Garage Helper Goals PT Garage Helper Goals Time Frame: Aug 29, 2017 Transfers (B,C,W/C) (FIM): 6 Sit to Lying (QC): 6 Lying-Sitting on Side/Bed(QC): 6 Sit to Stand (QC): 6 Rollin Roll Left to Right (QC): 6 Car Transfer (QC): 4 Gait (FIM): 6 Distance: 400' Walk 10 feet (QC): 6 Walk 10ft-Uneven Surface(QC): 6 Walk 50ft with 2 Turns (QC): 6 Walk 150 ft (QC): 6 Gait Assistive Device: FWW Stairs (FIM): 2 # of Steps: 4 1 Step (curb) (QC): 4 4 Steps (QC): 4 Stairs Level Of Assist: 5 PT Plan Problem List Problem List: Activity Tolerance, Functional Strength, Safety, Balance, Gait, Transfer, Bed Mobility, ROM Treatment/Plan Treatment Plan: Continue Plan of Care Treatment Plan: Bed Mobility, Education, Functional Activity Alejandro, Functional Strength, Group Therapy, Gait, Safety, Therapeutic Exercise, Transfers Treatment Duration: Aug 29, 2017 Frequency: At least 5 of 7 days/Wk (IRF) Estimated Hrs Per Day: 1.5 hours per day Patient and/or Family Agrees t: Yes Safety Risks/Education Patient Education: Correct Positioning, Safety Issues Teaching Recipient: Patient Teaching Methods: Demonstration, Discussion Response to Teaching: Reinforcement Needed Time/GCodes Time In: 1455 Time Out: 1528 Total Billed Treatment Time: 33 Total Billed Treatment 1 visit EX x 2 33 min SHARI DC PT Aug 08, 2017 15:36
--- NOTE | 2017-08-08 15:45 | Occupational Ther Daily Note ---
OT Current Status-Daily Note Subjective Pt. reports 10/10 pain in back after getting up and coming to dining area with OT. Pt. has already had pain medication from nursing. Appearance Pt. in bed. Spouse in room and has already assisted him with back brace. Agrees to work with OT. Mental Status/Objective Patient Orientation: Person, Place, Time, Situation Functional [place] Measure 0=Not Assessed/NA 4=Minimal Assistance 1=Total Assistance 5=Supervision or Setup 2=Maximal Assistance 6=Modified [place] 3=Moderate Assistance 7=Complete [place] ADL-Treatment Functional [place] Measure 0=Not Assessed/NA 4=Minimal Assistance 1=Total Assistance 5=Supervision or Setup 2=Maximal Assistance 6=Modified [place] 3=Moderate Assistance 7=Complete IndependenceIRFPAI Quality Coding Scale 6 Independent with activity with or without an assistive device 5 Patient requires set up or clean up by helper. Patient completes activity by themselves 4 Supervision or touching assist (CGA). [place] provide cues , steadying assist 3 The helper provides less than half the effort to complete the activity 2 The helper provides more than half the effort to complete the activity 1 Dependent. The helper does all the effort to complete an activity 7 Patient refused to complete or attempt activity 9 The patient did not perform the activity before the current illness or injury 88 Not attempted due to Medical conditions or safety concerns Transfers (B, C, W/C) (FIM): 4 (Pt. transfers with CGA supine-sit and sit- stand. Ambulates around therapy dining area with multiple sit down rest breaks with CGA.) Other Treatment Pt. agreed to work with OT. Transferred to side of bed and then ambulated to therapy dining area. Sat in chair and began to participate in fine motor task of nut/bolt activity. However, pt. had difficulty with sitting in one place and continually had to shift weight as pain was high with seated pressure. Stood to ambulate to attempt to relieve pressure. States that this helps, but not much. Sat again and attempted task again. However, began to report significant pain again. Ambulated around unit again with CGA and walker. Pt. very slow and ambulated back to room. Transferred back to bed and all needs met. Able to transfer sit-supine with SBA while wearing TLSO brace. Education OT Patient Education: Correct positioning, Modified ADL techniques, Progress toward Goal/Update tx plan, Purpose of tx/functional activities, Reviewed precautions, Rehab process, Transfer techniques Teaching Recipient: Patient Teaching Methods: Demonstration, Discussion Response to Teaching: Verbalize Understanding, Return Demonstration OT Short Term Goals Short Term Goals Time Frame: Aug 14, 2017 Eating(FIM): 6 Grooming(FIM): 6 Bathing(FIM): 5 Upper Body Dressing(FIM): 5 Lower Body Dressing(FIM): 5 Toileting(FIM): 5 Transfers (B,C,W/C) (FIM): 6 Toilet/Commode Transfer(FIM): 5 Shower Transfer(FIM): 4 Additional Short Term Goals: 1-Demonstrate ADL Tasks, 2-Verbalize Understanding , 3-ImproveStrength/Alejandro 1=Demonstrate adherence to instructed precautions during ADL tasks. 2=Patient will verbalize/demonstrate understanding of assistive devices/ modifications for ADL. 3=Patient will improve strength/tolerance for activity to enable patient to perform ADL's. OT Professional Driver Goals Skilled Nursing Goals Time Frame: Aug 21, 2017 Eating (FIM): 6 Eating (QC): 6 Groomin Oral Hygiene (QC): 6 Bathing(FIM): 5 Shower/Bathe Self (QC): 5 Upper Body Dressing(FIM): 6 Upper Body Dressing (QC): 5 Lower Body Dressing(FIM): 6 Lower Body Dressing (QC): 5 On/Off Footwear (QC): 5 Toileting(FIM): 6 Toileting Hygiene (QC): 6 Transfers (B,C,W/C) (FIM): 6 Toilet/Commode Transfer(FIM): 6 Toilet/Commode Transfer (QC): 5 Shower Transfer(FIM): 5 Additional Goals: 1-Demonstrate ADL Tasks, 2-Verbalize Understanding, 3- ImproveStrength/Alejandro 1=Demonstrate adherence to instructed precautions during ADL tasks. 2=Patient will verbalize/demonstrate understanding of assistive devices/ modifications for ADL. 3=Patient will improve strength/tolerance for activity to enable patient to perform ADL's. OT Education/Plan Problem List/Assessment Assessment: Decreased Activ Tolerance, Impaired Funct Balance, Impaired I ADL's , Impaired Self-Care Skills Discharge Recommendations Plan/Recommendations: Continue POC Therapy D/C Recommendations: Home w/ Family Support, Occupational Therapy Home Care Equpiment Recommendations-D/C: Extended Bath Bench, Hip Kit Treatment Plan/Plan of Care Treatment,Training & Education: Yes Patient would benefit from OT for education, treatment and training to promote independence in ADL's, mobility, safety and/or upper extremity function for ADL' s. Plan of Care: ADL Retraining, Functional Mobility, Group Exercise/Act as Ind, UE Funct Exercise/Act Treatment Duration: Aug 21, 2017 Frequency: At least 5 of 7 days/Wk (IRF) Estimated Hrs Per Day: 1.5 hours per day Agreement: Yes Rehab Potential: Fair Time/GCodes Start Time: 14:30 Stop Time: 15:00 Total Time Billed (hr/min): 30 Billed Treatment Time 1, FA x 2 HILARIA GOMEZ OT Aug 08, 2017 15:45
[2017-08-08 17:47] VITALS: BP 159/90
[2017-08-08] MEDS: inSUlin DETERMIR 1 UNIT/0.01 ML (LEVEMIR) CHARGE PER UNIT SQ SCH (20:42)
[2017-08-08] MEDS: POLYETHYLENE GLYCOL 17 GM (MIRALAX) PACK PO SCH (20:43)
[2017-08-08] MEDS: SENNA W/DOCUSATE (SENOKOT S) TABLET PO SCH (20:44)
[2017-08-08] MEDS: LIDODERM PATCH REMOVAL TP SCH (21:06)
[2017-08-09] MEDS: HYDROmorphone (DILAUDID) 2 MG TAB PO SCH ×4 (03:08→21:19)
[2017-08-09 05:49] VITALS: BP 140/96
[2017-08-09] MEDS: GLIMEPIRIDE 4 MG (AMARYL) TAB PO SCH ×2 (06:10→16:53)
[2017-08-09] MEDS: MULTIVIT W/MINERALS TAB (THERAGRAN M) PO SCH (06:10)
[2017-08-09] MEDS: metFORMIN 500 MG (GLUCOPHAGE) TAB PO SCH ×2 (06:10→16:53)
[2017-08-09] MEDS: IBUPROFEN 600 MG (MOTRIN) TAB PO PRN ×3 (06:10→18:05)
[2017-08-09] MEDS: inSUlin ASPART (NovoLOG) 1 UNIT/0.01 ML (CHARGE PER UNIT) SC SCH ×4 (06:11→21:19)
[2017-08-09 08:11] VITALS: BP 136/84
[2017-08-09] MEDS: amLODIPine 5 MG (NORVASC) TAB PO SCH (08:13)
[2017-08-09] MEDS: LINAGLIPTIN (TRADJENTA) 5 MG TABLET PO SCH (08:13)
[2017-08-09] MEDS: lisINopril 20 MG (ZESTRIL) TAB PO SCH (08:13)
[2017-08-09] MEDS: LIDOCAINE (LIDODERM) 5% PATCH TOP SCH (08:15)
[2017-08-09] MEDS: POLYETHYLENE GLYCOL 17 GM (MIRALAX) PACK PO SCH ×2 (08:20→21:09)
[2017-08-09] MEDS: DOCUSATE SODIUM 100 MG (COLACE) CAP PO SCH ×2 (08:20→21:09)
[2017-08-09] MEDS: SENNA W/DOCUSATE (SENOKOT S) TABLET PO SCH ×2 (08:20→21:09)
--- NOTE | 2017-08-09 10:58 | Physical Therapy Daily Note ---
PT Daily Note-Current Subjective Patient in bed pre tx, agrees to PT, has pain of 6/10. BP upon sitting is 150/ 96. Appearance Patient BTB post tx with nurse call, phone, tray, all needs met. Mental Status Patient Orientation: Normal For Age TLSO Transfers Functional [place] Measure 0=Not Assessed/NA 4=Minimal Assistance 1=Total Assistance 5=Supervision or Setup 2=Maximal Assistance 6=Modified [place] 3=Moderate Assistance 7=Complete IndependenceIRFPAI Quality Coding Scale 6 Independent with activity with or without an assistive device 5 Patient requires set up or clean up by helper. Patient completes activity by themselves 4 Supervision or touching assist (CGA). [place] provide cues , steadying assist 3 The helper provides less than half the effort to complete the activity 2 The helper provides more than half the effort to complete the activity 1 Dependent. The helper does all the effort to complete an activity 7 Patient refused to complete or attempt activity 9 The patient did not perform the activity before the current illness or injury 88 Not attempted due to Medical conditions or safety concerns Transfers (B, C, W/C) (FIM): 5 Scootin Rollin Supine to/from Sit: 5 Sit to/from Stand: 5 cues for hand placement, he tends to pullup from the walker Weight Bearing Right Lower Extremity: Right Weight Bearing/Tolerated Left Lower Extremity: Left Weight Bearing/Tolerated Gait Training Gait (FIM): 5 Distance: 150', 300'x3 Gait Level of Assist: 5 Gait Persons Needed: 1 Gait Assistive Device: FWW slow, antalgic Exercises Seated Therapy Exercises: Ankle pumps, Long arc quads, Hip abd/add Seated Reps: 20 Standing: Hip Abduction, Hamstring curls, Heel/toe raises, Marching, Mini squats Standing Reps: 20 Treatments bed mobility and transfers, ambulation, functional strengthening Assessment Current Status: Fair Progress improving endurance, still dependent for brace don/doff, significant pain that increased to 9/10 PT Short Term Goals Short Term Goals Time Frame: Aug 15, 2017 Transfers (B,C,W/C) (FIM): 6 Gait (FIM): 5 Gait Distance Comment: >300' Gait Level of Assist: 5 Gait Assistive Device: FWW PT Skilled Nursing Goals Skilled Nursing Goals PT Skilled Nursing Goals Time Frame: Aug 29, 2017 Transfers (B,C,W/C) (FIM): 6 Sit to Lying (QC): 6 Lying-Sitting on Side/Bed(QC): 6 Sit to Stand (QC): 6 Rollin Roll Left to Right (QC): 6 Car Transfer (QC): 4 Gait (FIM): 6 Distance: 400' Walk 10 feet (QC): 6 Walk 10ft-Uneven Surface(QC): 6 Walk 50ft with 2 Turns (QC): 6 Walk 150 ft (QC): 6 Gait Assistive Device: FWW Stairs (FIM): 2 # of Steps: 4 1 Step (curb) (QC): 4 4 Steps (QC): 4 Stairs Level Of Assist: 5 PT Plan Problem List Problem List: Activity Tolerance, Functional Strength, Safety, Balance, Gait, Transfer, Bed Mobility, ROM Treatment/Plan Treatment Plan: Continue Plan of Care Treatment Plan: Bed Mobility, Education, Functional Activity Alejandro, Functional Strength, Group Therapy, Gait, Safety, Therapeutic Exercise, Transfers Treatment Duration: Aug 29, 2017 Frequency: At least 5 of 7 days/Wk (IRF) Estimated Hrs Per Day: 1.5 hours per day Patient and/or Family Agrees t: Yes Safety Risks/Education Patient Education: Gait Training, Transfer Techniques, Correct Positioning, Safety Issues Teaching Recipient: Patient Teaching Methods: Demonstration, Discussion Response to Teaching: Reinforcement Needed Time/GCodes Time In: 1000 Time Out: 1059 Total Billed Treatment Time: 59 Total Billed Treatment 1 visit EX 20' FA 10' GT 29' SHARI DC PT Aug 09, 2017 10:58
[2017-08-09] MEDS: ENOXAPARIN 40 MG/0.4 ML (LOVENOX) SYR SC SCH (12:06)
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
--- NOTE | 2017-08-09 14:32 | Therapy Group Daily Note ---
Therapy Daily Group Note Patient Education Topic Home Safety, Fall Prevention, Exercises Exercises LE Seated Exercise, UE Exercise Other/Notes SP assisted pt with donning back brace. Pt ambulated to PT/OT Group using FWW at close SBA followed by recliner. Pt transferred to recliner for comfort. Pt participated in group including introduction (name, where they're from, worst fall), seated UE and LE EX, explanation of ARU and expectations, as well as weekly ARU meeting. Brain teasers, home safety, fall prevention. Pt actively participated in both EX and verbal descriptions of fall hazards within the house. Pt was wheeled in recliner to room and trasnferred to EOB at end of tx with all needs met. PT and SP helped pt doff back brace. Start Time: 13:00 Stop Time: 14:00 Total Billed Treatment Time: 60 Total Billed Treatment 1, GRP (60m) JUAN J GUPTA APPEALS WRITER Aug 09, 2017 14:32
--- NOTE | 2017-08-09 15:16 | Occupational Ther Daily Note ---
OT Current Status-Daily Note Subjective Pt. states that he slept better last night than the night before. Appearance Pt. in bed. Spouse has already assisted him with spongebath in bed and hair wash. Pt. has same clothes on and spouse brings new clothes while OT in the room. Mental Status/Objective Patient Orientation: Person, Place, Time, Situation Functional [place] Measure 0=Not Assessed/NA 4=Minimal Assistance 1=Total Assistance 5=Supervision or Setup 2=Maximal Assistance 6=Modified [place] 3=Moderate Assistance 7=Complete [place] ADL-Treatment Functional [place] Measure 0=Not Assessed/NA 4=Minimal Assistance 1=Total Assistance 5=Supervision or Setup 2=Maximal Assistance 6=Modified [place] 3=Moderate Assistance 7=Complete IndependenceIRFPAI Quality Coding Scale 6 Independent with activity with or without an assistive device 5 Patient requires set up or clean up by helper. Patient completes activity by themselves 4 Supervision or touching assist (CGA). [place] provide cues , steadying assist 3 The helper provides less than half the effort to complete the activity 2 The helper provides more than half the effort to complete the activity 1 Dependent. The helper does all the effort to complete an activity 7 Patient refused to complete or attempt activity 9 The patient did not perform the activity before the current illness or injury 88 Not attempted due to Medical conditions or safety concerns Upper Body (FIM): 3 (Min assist to doff/don shirt and max assist overall for TLSO brace.) Upper Body Dressing (QC): 3 Lower Body Dressing (FIM): 4 (Pt. able to doff/don pants at bed level using AE with SBA. Able to don socks with AE with mod assist. Pt. is able to don shoes with SBA while seated on side of bed. Shoes have elastic laces in them.) Lower Body Dressing (QC): 4 On/Off Footwear (QC): 5 Transfers (B, C, W/C) (FIM): 4 (Min assist to ambulate due to pain.) Other Treatment Once pt. was up, he ambulated to therapy gym. He attempted to complete armbike , but continually had to stop and shift in his seat. Finally did report 9/10 pain in back and nursing was notified. Nursing provided pain medication. Ambulated several more times with pt. around therapy gym with CGA/Min. Required several brief rest breaks in which pt. had to sit and rest. Went back to room and transferred back to bed. Brace left on as he would be getting back up. Spouse was shown tub transfer bench for home use. Spouse states that she will be purchasing one, as this seems to work well. All needs met. Education OT Patient Education: Correct positioning, Exercise program, Modified ADL techniques, Progress toward Goal/Update tx plan, Purpose of tx/functional activities, Reviewed precautions, Rehab process, Transfer techniques, Use of adapted equipment Teaching Recipient: Patient Teaching Methods: Demonstration, Discussion Response to Teaching: Verbalize Understanding, Return Demonstration OT Short Term Goals Short Term Goals Time Frame: Aug 14, 2017 Eating(FIM): 6 Grooming(FIM): 6 Bathing(FIM): 5 Upper Body Dressing(FIM): 5 Lower Body Dressing(FIM): 5 Toileting(FIM): 5 Transfers (B,C,W/C) (FIM): 6 Toilet/Commode Transfer(FIM): 5 Shower Transfer(FIM): 4 Additional Short Term Goals: 1-Demonstrate ADL Tasks, 2-Verbalize Understanding , 3-ImproveStrength/Alejandro 1=Demonstrate adherence to instructed precautions during ADL tasks. 2=Patient will verbalize/demonstrate understanding of assistive devices/ modifications for ADL. 3=Patient will improve strength/tolerance for activity to enable patient to perform ADL's. OT Mental Telepathist Goals Mental Telepathist Goals Time Frame: Aug 21, 2017 Eating (FIM): 6 Eating (QC): 6 Groomin Oral Hygiene (QC): 6 Bathing(FIM): 5 Shower/Bathe Self (QC): 5 Upper Body Dressing(FIM): 6 Upper Body Dressing (QC): 5 Lower Body Dressing(FIM): 6 Lower Body Dressing (QC): 5 On/Off Footwear (QC): 5 Toileting(FIM): 6 Toileting Hygiene (QC): 6 Transfers (B,C,W/C) (FIM): 6 Toilet/Commode Transfer(FIM): 6 Toilet/Commode Transfer (QC): 5 Shower Transfer(FIM): 5 Additional Goals: 1-Demonstrate ADL Tasks, 2-Verbalize Understanding, 3- ImproveStrength/Alejandro 1=Demonstrate adherence to instructed precautions during ADL tasks. 2=Patient will verbalize/demonstrate understanding of assistive devices/ modifications for ADL. 3=Patient will improve strength/tolerance for activity to enable patient to perform ADL's. OT Education/Plan Problem List/Assessment Assessment: Decreased Activ Tolerance, Decreased UE Strength, Dependent Transfers, Impaired Bed Mobility, Impaired Funct Balance, Impaired I ADL's, Impaired Self-Care Skills Discharge Recommendations Plan/Recommendations: Continue POC Therapy D/C Recommendations: Home w/ Family Support Equpiment Recommendations-D/C: Extended Bath Bench Treatment Plan/Plan of Care Treatment,Training & Education: Yes Patient would benefit from OT for education, treatment and training to promote independence in ADL's, mobility, safety and/or upper extremity function for ADL' s. Plan of Care: ADL Retraining, Functional Mobility, Group Exercise/Act as Ind, UE Funct Exercise/Act Treatment Duration: Aug 21, 2017 Frequency: At least 5 of 7 days/Wk (IRF) Estimated Hrs Per Day: 1.5 hours per day Agreement: Yes Rehab Potential: Fair Time/GCodes Start Time: 11:15 Stop Time: 12:15 Total Time Billed (hr/min): 60 Billed Treatment Time 1, ADL x 4 HILARIA GOMEZ OT Aug 09, 2017 15:16
--- NOTE | 2017-08-09 15:19 | Physical Therapy Progress Note ---
Therapy Progress Note Upon returning to his room, PT reviewed back brace use and precautions with movement to prevent further injury. Patient voices understanding. 1 visit ([id number]) TANYA PINEDO PT Aug 09, 2017 15:19
[2017-08-09 19:18] VITALS: BP 146/92
[2017-08-09] MEDS: LIDODERM PATCH REMOVAL TP SCH (21:07)
[2017-08-09] MEDS: inSUlin DETERMIR 1 UNIT/0.01 ML (LEVEMIR) CHARGE PER UNIT SQ SCH (21:09)
[2017-08-10] MEDS: IBUPROFEN 600 MG (MOTRIN) TAB PO PRN ×4 (00:38→17:44)
[2017-08-10] MEDS: HYDROmorphone (DILAUDID) 2 MG TAB PO SCH ×4 (02:57→21:30)
[2017-08-10 05:46] VITALS: BP 127/84
[2017-08-10] MEDS: inSUlin ASPART (NovoLOG) 1 UNIT/0.01 ML (CHARGE PER UNIT) SC SCH ×4 (06:04→21:28)
[2017-08-10] MEDS: MULTIVIT W/MINERALS TAB (THERAGRAN M) PO SCH (06:04)
[2017-08-10] MEDS: metFORMIN 500 MG (GLUCOPHAGE) TAB PO SCH ×2 (06:04→17:45)
[2017-08-10] MEDS: GLIMEPIRIDE 4 MG (AMARYL) TAB PO SCH ×2 (06:04→17:44)
[2017-08-10 08:01] VITALS: BP 134/80
[2017-08-10] MEDS: LIDOCAINE (LIDODERM) 5% PATCH TOP SCH (08:03)
[2017-08-10] MEDS: DOCUSATE SODIUM 100 MG (COLACE) CAP PO SCH ×2 (08:03→21:30)
[2017-08-10] MEDS: POLYETHYLENE GLYCOL 17 GM (MIRALAX) PACK PO SCH ×2 (08:03→21:30)
[2017-08-10] MEDS: LINAGLIPTIN (TRADJENTA) 5 MG TABLET PO SCH (08:04)
[2017-08-10] MEDS: lisINopril 20 MG (ZESTRIL) TAB PO SCH (08:04)
[2017-08-10] MEDS: amLODIPine 5 MG (NORVASC) TAB PO SCH (08:04)
[2017-08-10] MEDS: SENNA W/DOCUSATE (SENOKOT S) TABLET PO SCH ×2 (08:06→21:30)
--- NOTE | 2017-08-10 08:55 | Physical Therapy Daily Note ---
PT Daily Note-Current Subjective Patient in bed pre tx, agrees to PT, has 6/10 pain in his back. Patient dependent for donning his TLSO. Appearance Patient in recliner at bedside post tx with nurse call, phone, tray, in the room. Mental Status Patient Orientation: Normal For Age TLSO Transfers Functional [place] Measure 0=Not Assessed/NA 4=Minimal Assistance 1=Total Assistance 5=Supervision or Setup 2=Maximal Assistance 6=Modified [place] 3=Moderate Assistance 7=Complete IndependenceIRFPAI Quality Coding Scale 6 Independent with activity with or without an assistive device 5 Patient requires set up or clean up by helper. Patient completes activity by themselves 4 Supervision or touching assist (CGA). [place] provide cues , steadying assist 3 The helper provides less than half the effort to complete the activity 2 The helper provides more than half the effort to complete the activity 1 Dependent. The helper does all the effort to complete an activity 7 Patient refused to complete or attempt activity 9 The patient did not perform the activity before the current illness or injury 88 Not attempted due to Medical conditions or safety concerns Transfers (B, C, W/C) (FIM): 5 Scootin Rollin Supine to/from Sit: 6 Sit to/from Stand: 5 Patient tends to have his knee buckle a little immediately upon standing and he catches himself with the walker, this happens because of pain, however this did not happen this morning. Patient does need cues for hand placement and safety. Weight Bearing Right Lower Extremity: Right Weight Bearing/Tolerated Left Lower Extremity: Left Weight Bearing/Tolerated Gait Training Gait (FIM): 5 Distance: 150', 400' Gait Level of Assist: 4 Gait Persons Needed: 1 Gait Assistive Device: FWW slow, antalgic Exercises Standing: Hip Abduction, Hamstring curls, Heel/toe raises, Mini squats Standing Reps: 20 LAQ alternating for 5 min NuStep Minutes: 10 NuStep Workload: 5 Treatments bed mobility and transfers, ambulation, functional strengthening to improve lower extremity strength Assessment Current Status: Fair Progress Patient had significant pain and needed frequent rest breaks. PT Short Term Goals Short Term Goals Time Frame: Aug 15, 2017 Transfers (B,C,W/C) (FIM): 6 Gait (FIM): 5 Gait Distance Comment: >300' Gait Level of Assist: 5 Gait Assistive Device: FWW PT Skilled Nursing Goals Skilled Nursing Goals PT Nuclear Reactor Engineer Goals Time Frame: Aug 29, 2017 Transfers (B,C,W/C) (FIM): 6 Sit to Lying (QC): 6 Lying-Sitting on Side/Bed(QC): 6 Sit to Stand (QC): 6 Rollin Roll Left to Right (QC): 6 Car Transfer (QC): 4 Gait (FIM): 6 Distance: 400' Walk 10 feet (QC): 6 Walk 10ft-Uneven Surface(QC): 6 Walk 50ft with 2 Turns (QC): 6 Walk 150 ft (QC): 6 Gait Assistive Device: FWW Stairs (FIM): 2 # of Steps: 4 1 Step (curb) (QC): 4 4 Steps (QC): 4 Stairs Level Of Assist: 5 PT Plan Problem List Problem List: Activity Tolerance, Functional Strength, Safety, Balance, Gait, Transfer, Bed Mobility Treatment/Plan Treatment Plan: Continue Plan of Care Treatment Plan: Bed Mobility, Education, Functional Activity Alejandro, Functional Strength, Group Therapy, Gait, Safety, Therapeutic Exercise, Transfers Treatment Duration: Aug 29, 2017 Frequency: At least 5 of 7 days/Wk (IRF) Estimated Hrs Per Day: 1.5 hours per day Patient and/or Family Agrees t: Yes Safety Risks/Education Patient Education: Gait Training, Transfer Techniques, Correct Positioning, Reviewed Don/Doff Brace, Safety Issues Teaching Recipient: Patient Teaching Methods: Demonstration, Discussion Response to Teaching: Reinforcement Needed Time/GCodes Time In: 800 Time Out: 859 Total Billed Treatment Time: 59 Total Billed Treatment 1 visit GT 15' FA 10' EX 34' SHARI DC PT Aug 10, 2017 08:55
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
--- NOTE | 2017-08-10 10:28 | Occupational Ther Daily Note ---
OT Current Status-Daily Note Subjective Pt in bed, agrees to treatment. Pt reports 7/10 back pain. Mental Status/Objective Functional [place] Measure 0=Not Assessed/NA 4=Minimal Assistance 1=Total Assistance 5=Supervision or Setup 2=Maximal Assistance 6=Modified [place] 3=Moderate Assistance 7=Complete [place] ADL-Treatment Pt in bed, would like to sponge bathe and change clothes. Sponge bath and dressing completed while supine in bed. Doff shirt with minimal assistance. Upper body bathing completed with set up. Pt doffed pants and socks using adaptive equipment. Pt unable to wash lower legs and feet without AE, but was able to use long handled sponge to complete task. Don pullover shirt with minimal assistance to pull down in back. Pt required minimal assistance to start pants over feet while in supine, pt then able to complete lower body dressing. Pt requires max assist to don TLSO while in supine. Supine to sit with supervision. Pt donned shoes with minimal assistance using AE. Shoes have elastic laces in them. Pt's spouse washed his hair while seated EOB. Pt combed hair with set up. Sit to stand with supervision. Gait to restroom with FWW. Pt brushed teeth with set up while standing at sink. Pt requires increased time for ADL tasks. Functional [place] Measure 0=Not Assessed/NA 4=Minimal Assistance 1=Total Assistance 5=Supervision or Setup 2=Maximal Assistance 6=Modified [place] 3=Moderate Assistance 7=Complete IndependenceIRFPAI Quality Coding Scale 6 Independent with activity with or without an assistive device 5 Patient requires set up or clean up by helper. Patient completes activity by themselves 4 Supervision or touching assist (CGA). [place] provide cues , steadying assist 3 The helper provides less than half the effort to complete the activity 2 The helper provides more than half the effort to complete the activity 1 Dependent. The helper does all the effort to complete an activity 7 Patient refused to complete or attempt activity 9 The patient did not perform the activity before the current illness or injury 88 Not attempted due to Medical conditions or safety concerns Grooming (FIM): 5 Oral Hygiene (QC): 5 Bathing (FIM): 4 Upper Body (FIM): 4 Upper Body Dressing (QC): 3 Lower Body Dressing (FIM): 4 Lower Body Dressing (QC): 3 Other Treatment Gait to therapy gym with FWW. Pt participated in fine motor task with nuts and bolts, but was uncomfortable in seated position. Attempted activity in standing , but pt unable to tolerate. Pt performed gait back to room, sit to supine with SBA. Pt resting in bed with needs met after session. OT Short Term Goals Short Term Goals Time Frame: Aug 14, 2017 Eating(FIM): 6 Grooming(FIM): 6 Bathing(FIM): 5 Upper Body Dressing(FIM): 5 Lower Body Dressing(FIM): 5 Toileting(FIM): 5 Transfers (B,C,W/C) (FIM): 6 Toilet/Commode Transfer(FIM): 5 Shower Transfer(FIM): 4 Additional Short Term Goals: 1-Demonstrate ADL Tasks, 2-Verbalize Understanding , 3-ImproveStrength/Alejandro 1=Demonstrate adherence to instructed precautions during ADL tasks. 2=Patient will verbalize/demonstrate understanding of assistive devices/ modifications for ADL. 3=Patient will improve strength/tolerance for activity to enable patient to perform ADL's. OT Long-Term Goals Long-Term Goals Time Frame: Aug 21, 2017 Eating (FIM): 6 Eating (QC): 6 Groomin Oral Hygiene (QC): 6 Bathing(FIM): 5 Shower/Bathe Self (QC): 5 Upper Body Dressing(FIM): 6 Upper Body Dressing (QC): 5 Lower Body Dressing(FIM): 6 Lower Body Dressing (QC): 5 On/Off Footwear (QC): 5 Toileting(FIM): 6 Toileting Hygiene (QC): 6 Transfers (B,C,W/C) (FIM): 6 Toilet/Commode Transfer(FIM): 6 Toilet/Commode Transfer (QC): 5 Shower Transfer(FIM): 5 Additional Goals: 1-Demonstrate ADL Tasks, 2-Verbalize Understanding, 3- ImproveStrength/Alejandro 1=Demonstrate adherence to instructed precautions during ADL tasks. 2=Patient will verbalize/demonstrate understanding of assistive devices/ modifications for ADL. 3=Patient will improve strength/tolerance for activity to enable patient to perform ADL's. OT Education/Plan Discharge Recommendations Plan/Recommendations: Continue POC Treatment Plan/Plan of Care Patient would benefit from OT for education, treatment and training to promote independence in ADL's, mobility, safety and/or upper extremity function for ADL' s. Plan of Care: ADL Retraining, Functional Mobility, Group Exercise/Act as Ind, UE Funct Exercise/Act Treatment Duration: Aug 21, 2017 Frequency: At least 5 of 7 days/Wk (IRF) Estimated Hrs Per Day: 1.5 hours per day Agreement: Yes Rehab Potential: Fair Time/GCodes Start Time: 09:00 Stop Time: 10:00 Total Time Billed (hr/min): 60 Billed Treatment Time 1 visit, ADLx3(45minutes), FA(15minutes) KENZIE ROTH OT Aug 10, 2017 10:28
[2017-08-10] MEDS: ENOXAPARIN 40 MG/0.4 ML (LOVENOX) SYR SC SCH (12:14)
--- NOTE | 2017-08-10 14:43 | Therapy Group Daily Note ---
Therapy Daily Group Note Exercises LE Seated Exercise, Fine Motor, UE Exercise Other/Notes Due to increased back pain during prolonged sitting pt was brought to OT/PT group in recliner. OT/PT group consisted of introductions (name, place living, favorite food), socialization, activities that incorporated problem solving, UE reaching/ coordination, dynamic sitting, core strength, memorization, sequencing with visual motor and fine motor skills. Pt was educated on ARU expectations and therapy. Pt was able to appropriately introduce self and contribute to peer conversations. Pt demonstrated good social interactions during activities. Pt was able to reach and complete dynamic sitting with activities with modifications. After group pt in recliner with call light/ phone in reach. All needs met in room. Start Time: 13:00 Stop Time: 14:00 Total Billed Treatment Time: 60 Total Billed Treatment 1, GRP GIL ELIAS Aug 10, 2017 14:43
[2017-08-10 18:41] VITALS: BP 148/93
[2017-08-10] MEDS: inSUlin DETERMIR 1 UNIT/0.01 ML (LEVEMIR) CHARGE PER UNIT SQ SCH (21:29)
[2017-08-10] MEDS: LIDODERM PATCH REMOVAL TP SCH (21:30)
[2017-08-11] MEDS: IBUPROFEN 600 MG (MOTRIN) TAB PO PRN ×5 (00:05→23:54)
[2017-08-11] MEDS: HYDROmorphone (DILAUDID) 2 MG TAB PO SCH ×4 (03:23→20:45)
[2017-08-11 05:00] VITALS: BP 127/80
[2017-08-11] MEDS: GLIMEPIRIDE 4 MG (AMARYL) TAB PO SCH ×2 (06:16→16:46)
[2017-08-11] MEDS: inSUlin ASPART (NovoLOG) 1 UNIT/0.01 ML (CHARGE PER UNIT) SC SCH ×4 (06:16→20:45)
[2017-08-11] MEDS: metFORMIN 500 MG (GLUCOPHAGE) TAB PO SCH ×2 (06:17→16:46)
[2017-08-11] MEDS: MULTIVIT W/MINERALS TAB (THERAGRAN M) PO SCH (06:17)
[2017-08-11] MEDS: amLODIPine 5 MG (NORVASC) TAB PO SCH (09:00)
[2017-08-11] MEDS: LIDOCAINE (LIDODERM) 5% PATCH TOP SCH (09:00)
[2017-08-11] MEDS: SENNA W/DOCUSATE (SENOKOT S) TABLET PO SCH ×2 (09:00→20:44)
[2017-08-11] MEDS: LINAGLIPTIN (TRADJENTA) 5 MG TABLET PO SCH (09:00)
[2017-08-11] MEDS: lisINopril 20 MG (ZESTRIL) TAB PO SCH (09:00)
[2017-08-11] MEDS: DOCUSATE SODIUM 100 MG (COLACE) CAP PO SCH ×2 (09:01→20:44)
[2017-08-11] MEDS: POLYETHYLENE GLYCOL 17 GM (MIRALAX) PACK PO SCH ×2 (09:01→20:37)
--- NOTE | 2017-08-11 10:55 | Physical Therapy Daily Note ---
PT Daily Note-Current Subjective States that he is okay. Transfers Functional [place] Measure 0=Not Assessed/NA 4=Minimal Assistance 1=Total Assistance 5=Supervision or Setup 2=Maximal Assistance 6=Modified [place] 3=Moderate Assistance 7=Complete IndependenceIRFPAI Quality Coding Scale 6 Independent with activity with or without an assistive device 5 Patient requires set up or clean up by helper. Patient completes activity by themselves 4 Supervision or touching assist (CGA). [place] provide cues , steadying assist 3 The helper provides less than half the effort to complete the activity 2 The helper provides more than half the effort to complete the activity 1 Dependent. The helper does all the effort to complete an activity 7 Patient refused to complete or attempt activity 9 The patient did not perform the activity before the current illness or injury 88 Not attempted due to Medical conditions or safety concerns Transfers (B, C, W/C) (FIM): 5 Weight Bearing Right Lower Extremity: Right Weight Bearing/Tolerated Left Lower Extremity: Left Weight Bearing/Tolerated Gait Training Distance (FIM): 3=150 ft Distance: 500' Gait Level of Assist: 5 Gait Persons Needed: 1 Gait Assistive Device: FWW Exercises NuStep Minutes: 10 NuStep Workload: 5 Assessment Current Status: Excellent Progress Patient did well with all activities. PT Short Term Goals Short Term Goals Time Frame: Aug 15, 2017 Transfers (B,C,W/C) (FIM): 6 Gait (FIM): 5 Gait Distance Comment: >300' Gait Level of Assist: 5 Gait Assistive Device: FWW PT Mcc Goals Mcc Goals PT Mcc Goals Time Frame: Aug 29, 2017 Transfers (B,C,W/C) (FIM): 6 Sit to Lying (QC): 6 Lying-Sitting on Side/Bed(QC): 6 Sit to Stand (QC): 6 Rollin Roll Left to Right (QC): 6 Car Transfer (QC): 4 Gait (FIM): 6 Distance: 400' Walk 10 feet (QC): 6 Walk 10ft-Uneven Surface(QC): 6 Walk 50ft with 2 Turns (QC): 6 Walk 150 ft (QC): 6 Gait Assistive Device: FWW Stairs (FIM): 2 # of Steps: 4 1 Step (curb) (QC): 4 4 Steps (QC): 4 Stairs Level Of Assist: 5 PT Plan Treatment/Plan Treatment Plan: Continue Plan of Care Treatment Plan: Bed Mobility, Education, Functional Activity Alejandro, Functional Strength, Group Therapy, Gait, Safety, Therapeutic Exercise, Transfers Treatment Duration: Aug 29, 2017 Frequency: At least 5 of 7 days/Wk (IRF) Estimated Hrs Per Day: 1.5 hours per day Patient and/or Family Agrees t: Yes Time/GCodes Time In: 1000 Time Out: 1025 Total Billed Treatment Time: 25 Total Billed Treatment 1, GT x 15', EX x 10' RHETT GOMEZ PT Aug 11, 2017 10:55
[2017-08-11] MEDS: ENOXAPARIN 40 MG/0.4 ML (LOVENOX) SYR SC SCH (13:12)
[2017-08-11 18:20] VITALS: BP 121/72
[2017-08-11] MEDS: LIDODERM PATCH REMOVAL TP SCH (20:45)
[2017-08-11] MEDS: inSUlin DETERMIR 1 UNIT/0.01 ML (LEVEMIR) CHARGE PER UNIT SQ SCH (20:45)
[2017-08-12] MEDS: HYDROmorphone (DILAUDID) 2 MG TAB PO SCH ×4 (03:10→20:49)
[2017-08-12 05:00] VITALS: BP 114/75
[2017-08-12] MEDS: inSUlin ASPART (NovoLOG) 1 UNIT/0.01 ML (CHARGE PER UNIT) SC SCH ×4 (06:31→20:49)
[2017-08-12] MEDS: MULTIVIT W/MINERALS TAB (THERAGRAN M) PO SCH ×2 (06:32→09:05)
[2017-08-12] MEDS: GLIMEPIRIDE 4 MG (AMARYL) TAB PO SCH ×2 (06:32→16:17)
[2017-08-12] MEDS: metFORMIN 500 MG (GLUCOPHAGE) TAB PO SCH ×2 (06:32→16:18)
[2017-08-12] MEDS: IBUPROFEN 600 MG (MOTRIN) TAB PO PRN ×3 (06:33→17:42)
[2017-08-12 08:45] VITALS: BP 123/76
[2017-08-12] MEDS: lisINopril 20 MG (ZESTRIL) TAB PO SCH (08:47)
[2017-08-12] MEDS: LIDOCAINE (LIDODERM) 5% PATCH TOP SCH (08:47)
[2017-08-12] MEDS: LINAGLIPTIN (TRADJENTA) 5 MG TABLET PO SCH (08:48)
[2017-08-12] MEDS: amLODIPine 5 MG (NORVASC) TAB PO SCH (08:48)
[2017-08-12] MEDS: SENNA W/DOCUSATE (SENOKOT S) TABLET PO SCH ×2 (08:50→20:38)
[2017-08-12] MEDS: DOCUSATE SODIUM 100 MG (COLACE) CAP PO SCH ×2 (08:50→20:39)
[2017-08-12] MEDS: POLYETHYLENE GLYCOL 17 GM (MIRALAX) PACK PO SCH ×2 (08:50→20:38)
[2017-08-12] MEDS: ENOXAPARIN 40 MG/0.4 ML (LOVENOX) SYR SC SCH (11:52)
[2017-08-12 17:45] VITALS: BP 121/80
[2017-08-12] MEDS: LIDODERM PATCH REMOVAL TP SCH (20:49)
[2017-08-12] MEDS: inSUlin DETERMIR 1 UNIT/0.01 ML (LEVEMIR) CHARGE PER UNIT SQ SCH (20:49)
[2017-08-13] MEDS: IBUPROFEN 600 MG (MOTRIN) TAB PO PRN ×3 (00:06→12:02)
[2017-08-13] MEDS: HYDROmorphone (DILAUDID) 2 MG TAB PO SCH ×4 (03:15→21:06)
[2017-08-13] MEDS: inSUlin ASPART (NovoLOG) 1 UNIT/0.01 ML (CHARGE PER UNIT) SC SCH ×4 (05:29→21:08)
[2017-08-13 05:55] VITALS: BP 103/70
[2017-08-13] MEDS: metFORMIN 500 MG (GLUCOPHAGE) TAB PO SCH ×2 (06:04→16:24)
[2017-08-13] MEDS: GLIMEPIRIDE 4 MG (AMARYL) TAB PO SCH ×2 (06:04→16:24)
[2017-08-13] MEDS: MULTIVIT W/MINERALS TAB (THERAGRAN M) PO SCH (06:04)
[2017-08-13] MEDS: amLODIPine 5 MG (NORVASC) TAB PO SCH (08:03)
[2017-08-13] MEDS: lisINopril 20 MG (ZESTRIL) TAB PO SCH (08:03)
[2017-08-13] MEDS: LINAGLIPTIN (TRADJENTA) 5 MG TABLET PO SCH (08:03)
[2017-08-13] MEDS: LIDOCAINE (LIDODERM) 5% PATCH TOP SCH (09:30)
[2017-08-13] MEDS: POLYETHYLENE GLYCOL 17 GM (MIRALAX) PACK PO SCH ×2 (11:01→21:05)
[2017-08-13] MEDS: DOCUSATE SODIUM 100 MG (COLACE) CAP PO SCH ×2 (11:01→21:05)
[2017-08-13] MEDS: SENNA W/DOCUSATE (SENOKOT S) TABLET PO SCH ×2 (11:02→21:05)
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
[2017-08-13] MEDS: ENOXAPARIN 40 MG/0.4 ML (LOVENOX) SYR SC SCH (12:02)
--- NOTE | 2017-08-13 12:54 | Occupational Ther Daily Note ---
OT Current Status-Daily Note Subjective No pain reported. Pt. states that he "feels better." Appearance pt. in bed. Sister in room. Pt. states that he has already gotten "cleaned up and washed hair." Mental Status/Objective Patient Orientation: Person, Place, Time, Situation Functional [place] Measure 0=Not Assessed/NA 4=Minimal Assistance 1=Total Assistance 5=Supervision or Setup 2=Maximal Assistance 6=Modified [place] 3=Moderate Assistance 7=Complete [place] ADL-Treatment Functional [place] Measure 0=Not Assessed/NA 4=Minimal Assistance 1=Total Assistance 5=Supervision or Setup 2=Maximal Assistance 6=Modified [place] 3=Moderate Assistance 7=Complete IndependenceIRFPAI Quality Coding Scale 6 Independent with activity with or without an assistive device 5 Patient requires set up or clean up by helper. Patient completes activity by themselves 4 Supervision or touching assist (CGA). [place] provide cues , steadying assist 3 The helper provides less than half the effort to complete the activity 2 The helper provides more than half the effort to complete the activity 1 Dependent. The helper does all the effort to complete an activity 7 Patient refused to complete or attempt activity 9 The patient did not perform the activity before the current illness or injury 88 Not attempted due to Medical conditions or safety concerns Lower Body Dressing (QC): 5 (SBA to don shoes.) On/Off Footwear (QC): 4 Transfers (B, C, W/C) (FIM): 5 (SBA to roll in bed, transfer supine-sit, and sit-stand.) Pt. already bathed and dressed. Agrees to work with OT. Rolls side to side and requires mod assist to don brace. OT positions brace and pt. rolls onto back. Pt. is able to adjust straps on stomach area. OT pulls straps over shoulders and pt. is able to position them. Pt. transfers to side of bed with SBA. Pt. dons shoes with SBA. Ambulated to therapy gym with SBA. Completed armbike x 10 minutes with SBA. Tolerated this well. HR raised to 103. Pt. states that he is feeling much better than last week. All needs met. Ambulated to kitchen area. OT showed and educated pt. on walker baskets, walker trays, and other walker accessories to increase overall independence with daily task with use of walker. Pt. verbalizes understanding. Pt. is also educated about kitchen safety, and having family prepare kitchen with items that are easy for him to reach if they are going to be gone during the day. Pt. verbalizes understanding. All needs met back in room. Education OT Patient Education: Correct positioning, Exercise program, Modified ADL techniques, Progress toward Goal/Update tx plan, Purpose of tx/functional activities, Reviewed precautions, Rehab process, Transfer techniques Teaching Recipient: Patient, Family Teaching Methods: Demonstration Response to Teaching: Verbalize Understanding, Return Demonstration OT Short Term Goals Short Term Goals Time Frame: Aug 14, 2017 Eating(FIM): 6 Grooming(FIM): 6 Bathing(FIM): 5 Upper Body Dressing(FIM): 5 Lower Body Dressing(FIM): 5 Toileting(FIM): 5 Transfers (B,C,W/C) (FIM): 6 Toilet/Commode Transfer(FIM): 5 Shower Transfer(FIM): 4 Additional Short Term Goals: 1-Demonstrate ADL Tasks, 2-Verbalize Understanding , 3-ImproveStrength/Alejandro 1=Demonstrate adherence to instructed precautions during ADL tasks. 2=Patient will verbalize/demonstrate understanding of assistive devices/ modifications for ADL. 3=Patient will improve strength/tolerance for activity to enable patient to perform ADL's. OT Senior Living Goals Video Intern Goals Time Frame: Aug 21, 2017 Eating (FIM): 6 Eating (QC): 6 Groomin Oral Hygiene (QC): 6 Bathing(FIM): 5 Shower/Bathe Self (QC): 5 Upper Body Dressing(FIM): 6 Upper Body Dressing (QC): 5 Lower Body Dressing(FIM): 6 Lower Body Dressing (QC): 5 On/Off Footwear (QC): 5 Toileting(FIM): 6 Toileting Hygiene (QC): 6 Transfers (B,C,W/C) (FIM): 6 Toilet/Commode Transfer(FIM): 6 Toilet/Commode Transfer (QC): 5 Shower Transfer(FIM): 5 Additional Goals: 1-Demonstrate ADL Tasks, 2-Verbalize Understanding, 3- ImproveStrength/Alejandro 1=Demonstrate adherence to instructed precautions during ADL tasks. 2=Patient will verbalize/demonstrate understanding of assistive devices/ modifications for ADL. 3=Patient will improve strength/tolerance for activity to enable patient to perform ADL's. OT Education/Plan Problem List/Assessment Assessment: Decreased Activ Tolerance, Impaired I ADL's, Impaired Self-Care Skills Discharge Recommendations Plan/Recommendations: Continue POC Therapy D/C Recommendations: Home w/ Family Support, Occupational Therapy Home Care Equpiment Recommendations-D/C: Extended Bath Bench, Hip Kit Target Placement Home with spouse Treatment Plan/Plan of Care Treatment,Training & Education: Yes Patient would benefit from OT for education, treatment and training to promote independence in ADL's, mobility, safety and/or upper extremity function for ADL' s. Plan of Care: ADL Retraining, Functional Mobility, Group Exercise/Act as Ind, UE Funct Exercise/Act Treatment Duration: Aug 21, 2017 Frequency: At least 5 of 7 days/Wk (IRF) Estimated Hrs Per Day: 1.5 hours per day Agreement: Yes Rehab Potential: Fair Time/GCodes Start Time: 08:30 Stop Time: 09:30 Total Time Billed (hr/min): 60 Billed Treatment Time 1, ADL x 30minutes, EX x 15minutes, FA x 15minutes HILARIA GOMEZ OT Aug 13, 2017 12:54
--- NOTE | 2017-08-13 14:01 | PM & R (SOAP) Progress Note ---
Subjective Time Seen by Provider: 12:40 Subjective/Events-last exam Patient was seen in his room this afternoon Patient Modified Independent for transfers Objective Exam Last Set of Vital Signs Vital Signs Date Time Temp Pulse Resp B/P (MAP) Pulse Ox O2 Delivery O2 Flow Rate FiO2 08/13/17 05:55 97.7 92 18 103/70 96 Room Air Capillary Refill : Less Than 3 Seconds I&O Intake and Output 08/14/17 00:00 Intake Total 375 ml Output Total 800 ml Balance -425 ml Intake Oral 375 ml Output Urine Total 800 ml General: Alert, Oriented X3, Cooperative, No Acute Distress HEENT: Atraumatic, PERRLA, EOMI, Mucous Memb Moist/[place] Neck: Supple, No JVD Lungs: Clear to Auscultation Heart: Normal S1 Abdomen: Normal Bowel Sounds, Soft, No Tenderness Extremities: No Edema Neuro: Other (generalized weakness) Results Lab Laboratory Tests 08/10/17 16:27: Glucometer 232H 08/10/17 20:46: Glucometer 192H 08/11/17 05:42: Glucometer 181H 08/11/17 11:00: Glucometer 255H 08/11/17 16:04: Glucometer 180H 08/11/17 20:26: Glucometer 269H 08/12/17 05:08: Glucometer 176H 08/12/17 11:31: Glucometer 210H 08/12/17 16:28: Glucometer 188H 08/12/17 20:29: Glucometer 257H 08/13/17 05:23: Glucometer 142H 08/13/17 10:58: Glucometer 175H Assessment/Plan Assessment L 1 burst frx managed with TLSO by [facility] currently abstaining HTN meds being adjusted-improved Plan Continue PT/OT Pain management F/U with Hospitalist re HTN management prn Constipation meds adjusted Discharge remains set tentatively for 08-15-17 will confirm with GUERO LIGHT MD Aug 13, 2017 14:01
--- NOTE | 2017-08-13 14:56 | Occupational Ther Daily Note ---
OT Current Status-Daily Note Subjective No pain reported. Appearance Pt. in bed. Agrees to work with OT. Mental Status/Objective Patient Orientation: Person, Place, Time, Situation Functional [place] Measure 0=Not Assessed/NA 4=Minimal Assistance 1=Total Assistance 5=Supervision or Setup 2=Maximal Assistance 6=Modified [place] 3=Moderate Assistance 7=Complete [place] ADL-Treatment Functional [place] Measure 0=Not Assessed/NA 4=Minimal Assistance 1=Total Assistance 5=Supervision or Setup 2=Maximal Assistance 6=Modified [place] 3=Moderate Assistance 7=Complete IndependenceIRFPAI Quality Coding Scale 6 Independent with activity with or without an assistive device 5 Patient requires set up or clean up by helper. Patient completes activity by themselves 4 Supervision or touching assist (CGA). [place] provide cues , steadying assist 3 The helper provides less than half the effort to complete the activity 2 The helper provides more than half the effort to complete the activity 1 Dependent. The helper does all the effort to complete an activity 7 Patient refused to complete or attempt activity 9 The patient did not perform the activity before the current illness or injury 88 Not attempted due to Medical conditions or safety concerns Lower Body Dressing (FIM): 5 Lower Body Dressing (QC): 4 (SBA to don shoes.) On/Off Footwear (QC): 4 Transfers (B, C, W/C) (FIM): 5 (SBA to ambulate with walker.) Other Treatment Pt. agrees to treatment. Requires mod assist overall to don TLSO brace at bed level. Ambulated to therapy gym. Completed peg activity with alternating arm pattern for increased overall UE strength and body endurance during task. Pt. did start to seem uncomfortable when sitting, and began to shift weight. However, when asked, states, "I'm okay." Ambulated back to room. Transferred back to bed with SBA. Able to doff brace at bed level with min assist. All needs met. Education OT Patient Education: Correct positioning, Modified ADL techniques, Progress toward Goal/Update tx plan, Purpose of tx/functional activities, Reviewed precautions, Rehab process, Transfer techniques Teaching Recipient: Patient Teaching Methods: Demonstration, Discussion Response to Teaching: Verbalize Understanding, Return Demonstration OT Short Term Goals Short Term Goals Time Frame: Aug 14, 2017 Eating(FIM): 6 Grooming(FIM): 6 Bathing(FIM): 5 Upper Body Dressing(FIM): 5 Lower Body Dressing(FIM): 5 Toileting(FIM): 5 Transfers (B,C,W/C) (FIM): 6 Toilet/Commode Transfer(FIM): 5 Shower Transfer(FIM): 4 Additional Short Term Goals: 1-Demonstrate ADL Tasks, 2-Verbalize Understanding , 3-ImproveStrength/Alejandro 1=Demonstrate adherence to instructed precautions during ADL tasks. 2=Patient will verbalize/demonstrate understanding of assistive devices/ modifications for ADL. 3=Patient will improve strength/tolerance for activity to enable patient to perform ADL's. OT Halfway Goals Watch Dial Stoner Goals Time Frame: Aug 21, 2017 Eating (FIM): 6 Eating (QC): 6 Groomin Oral Hygiene (QC): 6 Bathing(FIM): 5 Shower/Bathe Self (QC): 5 Upper Body Dressing(FIM): 6 Upper Body Dressing (QC): 5 Lower Body Dressing(FIM): 6 Lower Body Dressing (QC): 5 On/Off Footwear (QC): 5 Toileting(FIM): 6 Toileting Hygiene (QC): 6 Transfers (B,C,W/C) (FIM): 6 Toilet/Commode Transfer(FIM): 6 Toilet/Commode Transfer (QC): 5 Shower Transfer(FIM): 5 Additional Goals: 1-Demonstrate ADL Tasks, 2-Verbalize Understanding, 3- ImproveStrength/Alejandro 1=Demonstrate adherence to instructed precautions during ADL tasks. 2=Patient will verbalize/demonstrate understanding of assistive devices/ modifications for ADL. 3=Patient will improve strength/tolerance for activity to enable patient to perform ADL's. OT Education/Plan Problem List/Assessment Assessment: Decreased Activ Tolerance, Impaired I ADL's, Impaired Self-Care Skills Discharge Recommendations Plan/Recommendations: Continue POC Therapy D/C Recommendations: Home w/ Family Support, Occupational Therapy Home Care Equpiment Recommendations-D/C: Extended Bath Bench, Hip Kit, Walker Bag or Basket Treatment Plan/Plan of Care Treatment,Training & Education: Yes Patient would benefit from OT for education, treatment and training to promote independence in ADL's, mobility, safety and/or upper extremity function for ADL' s. Plan of Care: ADL Retraining, Functional Mobility, Group Exercise/Act as Ind, UE Funct Exercise/Act Treatment Duration: Aug 21, 2017 Frequency: At least 5 of 7 days/Wk (IRF) Estimated Hrs Per Day: 1.5 hours per day Agreement: Yes Rehab Potential: Fair Time/GCodes Start Time: 13:00 Stop Time: 13:30 Total Time Billed (hr/min): 30 Billed Treatment Time 1, FA x 2 HILARIA GOMEZ OT Aug 13, 2017 14:56
--- NOTE | 2017-08-13 15:10 | Physical Therapy Daily Note ---
PT Daily Note-Current Subjective Pt. supine in bed and just waking from a nap. Agrees to Rx. Pain Numeric Pain Scale: 4 Location: Medial Location Body Site: Back Pain Description: Ache Mental Status Patient Orientation: Normal For Age rolls extreme left for application of TLSO. Transfers Functional [place] Measure 0=Not Assessed/NA 4=Minimal Assistance 1=Total Assistance 5=Supervision or Setup 2=Maximal Assistance 6=Modified [place] 3=Moderate Assistance 7=Complete IndependenceIRFPAI Quality Coding Scale 6 Independent with activity with or without an assistive device 5 Patient requires set up or clean up by helper. Patient completes activity by themselves 4 Supervision or touching assist (CGA). [place] provide cues , steadying assist 3 The helper provides less than half the effort to complete the activity 2 The helper provides more than half the effort to complete the activity 1 Dependent. The helper does all the effort to complete an activity 7 Patient refused to complete or attempt activity 9 The patient did not perform the activity before the current illness or injury 88 Not attempted due to Medical conditions or safety concerns All TRFs sup to sit and sit to stand SBA Weight Bearing Right Lower Extremity: Right Weight Bearing/Tolerated Left Lower Extremity: Left Weight Bearing/Tolerated Gait Training emphasis on turns and safety and staying in safe position in FWW, fig 8s etc 300ft plus Exercises Supine Ex: Ankle pumps, Quad Set, Rolling, Glut sets, Heel Slides, Hip abd/add Supine Reps: 8 Assessment Current Status: Good Progress PT Short Term Goals Short Term Goals Time Frame: Aug 15, 2017 Transfers (B,C,W/C) (FIM): 6 Gait (FIM): 5 Gait Distance Comment: >300' Gait Level of Assist: 5 Gait Assistive Device: FWW PT Conference Translator Goals Conference Translator Goals PT Senior Living Goals Time Frame: Aug 29, 2017 Transfers (B,C,W/C) (FIM): 6 Sit to Lying (QC): 6 Lying-Sitting on Side/Bed(QC): 6 Sit to Stand (QC): 6 Rollin Roll Left to Right (QC): 6 Car Transfer (QC): 4 Gait (FIM): 6 Distance: 400' Walk 10 feet (QC): 6 Walk 10ft-Uneven Surface(QC): 6 Walk 50ft with 2 Turns (QC): 6 Walk 150 ft (QC): 6 Gait Assistive Device: FWW Stairs (FIM): 2 # of Steps: 4 1 Step (curb) (QC): 4 4 Steps (QC): 4 Stairs Level Of Assist: 5 PT Plan Treatment/Plan Treatment Plan: Continue Plan of Care Treatment Plan: Bed Mobility, Education, Functional Activity Alejandro, Functional Strength, Group Therapy, Gait, Safety, Therapeutic Exercise, Transfers Treatment Duration: Aug 29, 2017 Frequency: At least 5 of 7 days/Wk (IRF) Estimated Hrs Per Day: 1.5 hours per day Patient and/or Family Agrees t: Yes Safety Risks/Education Patient Education: Gait Training, Transfer Techniques, Correct Positioning, Safety Issues Teaching Recipient: Patient Teaching Methods: Demonstration, Discussion Response to Teaching: Verbalize Understanding, Return Demonstration, Reinforcement Needed Time/GCodes Time In: 1435 Time Out: 1505 Total Billed Treatment Time: 30 Total Billed Treatment 1,FA10m,GT20m G Codes Necessary: AFSHIN Huntley WEB ARCHITECT Aug 13, 2017 15:10
[2017-08-13 19:12] VITALS: BP 138/82
[2017-08-13] MEDS: inSUlin DETERMIR 1 UNIT/0.01 ML (LEVEMIR) CHARGE PER UNIT SQ SCH (21:06)
[2017-08-13] MEDS: LIDODERM PATCH REMOVAL TP SCH (21:08)
[2017-08-14] MEDS: HYDROmorphone (DILAUDID) 2 MG TAB PO SCH ×4 (02:36→20:54)
[2017-08-14] MEDS: inSUlin ASPART (NovoLOG) 1 UNIT/0.01 ML (CHARGE PER UNIT) SC SCH ×4 (06:12→20:55)
[2017-08-14 06:15] VITALS: BP 118/76
[2017-08-14] MEDS: MULTIVIT W/MINERALS TAB (THERAGRAN M) PO SCH (06:27)
[2017-08-14] MEDS: metFORMIN 500 MG (GLUCOPHAGE) TAB PO SCH ×2 (06:27→17:51)
[2017-08-14] MEDS: GLIMEPIRIDE 4 MG (AMARYL) TAB PO SCH ×2 (06:27→16:35)
[2017-08-14] MEDS: IBUPROFEN 600 MG (MOTRIN) TAB PO PRN (10:05)
[2017-08-14] MEDS: amLODIPine 5 MG (NORVASC) TAB PO SCH (10:06)
[2017-08-14] MEDS: LINAGLIPTIN (TRADJENTA) 5 MG TABLET PO SCH (10:06)
[2017-08-14] MEDS: SENNA W/DOCUSATE (SENOKOT S) TABLET PO SCH ×2 (10:06→20:55)
[2017-08-14] MEDS: DOCUSATE SODIUM 100 MG (COLACE) CAP PO SCH ×2 (10:06→20:56)
[2017-08-14] MEDS: lisINopril 20 MG (ZESTRIL) TAB PO SCH (10:06)
[2017-08-14] MEDS: POLYETHYLENE GLYCOL 17 GM (MIRALAX) PACK PO SCH ×3 (10:07→20:56)
[2017-08-14] MEDS: LIDOCAINE (LIDODERM) 5% PATCH TOP SCH (10:08)
--- NOTE | 2017-08-14 11:33 | PM & R (SOAP) Progress Note ---
Subjective Time Seen by Provider: 07:50 Subjective/Events-last exam Patient was seen in his room this AM Progressing well with therapies Discharge remains set for tomorrow.Patient SBA for transfers Review of Systems Musculoskeletal: back pain Objective Exam Last Set of Vital Signs Vital Signs Date Time Temp Pulse Resp B/P (MAP) Pulse Ox O2 Delivery O2 Flow Rate FiO2 08/14/17 11:05 97.9 08/14/17 07:57 Room Air 08/14/17 06:15 82 16 118/76 97 Capillary Refill : Less Than 3 Seconds I&O Intake and Output 08/15/17 00:00 Intake Total 350 ml Output Total 1200 ml Balance -850 ml Intake Oral 350 ml Output Urine Total 1200 ml General: Alert, Oriented X3, Cooperative, No Acute Distress HEENT: Atraumatic, PERRLA, EOMI, Mucous Memb Moist/[place] Neck: Supple, No JVD Lungs: Clear to Auscultation Heart: Normal S1 Abdomen: Normal Bowel Sounds, Soft, No Tenderness Extremities: No Edema Neuro: Other (generalized weakness) Results Lab Laboratory Tests 08/11/17 16:04: Glucometer 180H 08/11/17 20:26: Glucometer 269H 08/12/17 05:08: Glucometer 176H 08/12/17 11:31: Glucometer 210H 08/12/17 16:28: Glucometer 188H 08/12/17 20:29: Glucometer 257H 08/13/17 05:23: Glucometer 142H 08/13/17 10:58: Glucometer 175H 08/13/17 16:22: Glucometer 225H 08/13/17 20:09: Glucometer 144H 08/14/17 05:36: Glucometer 158H 08/14/17 10:57: Glucometer 191H Assessment/Plan Assessment L 1 burst frx managed with TLSO by [facility] abuse currently abstaining HTN meds being adjusted-improved DM controlled Plan Continue PT/OT Pain management F/U with Hospitalist re HTN management prn-doing much better Constipation meds adjusted Discharge remains set for tomorrow 08-15-17 Current meds reviewed See orders. F/U with DR Geller and PCP GUERO ESPINAL MD Aug 14, 2017 11:33
[2017-08-14] MEDS ORDERED: Multivitamins/Minerals Therap PO (11:42)
[2017-08-14] MEDS ORDERED: SENN-20 PO (11:42)
[2017-08-14] MEDS ORDERED: LISI-552 PO (11:42)
[2017-08-14] MEDS ORDERED: POLY17PO23 PO (11:42)
[2017-08-14] MEDS ORDERED: HYDR2TAB6 PO (11:42)
[2017-08-14] MEDS ORDERED: AMLO5TAB2 PO (11:42)
--- NOTE | 2017-08-14 12:10 | Physical Therapy Daily Note ---
PT Daily Note-Current Subjective Pt laying Supine in bed resting upon arrival. Pt agrees to PT. Pain Numeric Pain Scale: 7 Location: Lower Location Body Site: Back Pain Description: Ache, Tightness, Sharp Comment: Pt has ache but occasional flares of sharp pain during activity. Transfers Functional [place] Measure 0=Not Assessed/NA 4=Minimal Assistance 1=Total Assistance 5=Supervision or Setup 2=Maximal Assistance 6=Modified [place] 3=Moderate Assistance 7=Complete IndependenceIRFPAI Quality Coding Scale 6 Independent with activity with or without an assistive device 5 Patient requires set up or clean up by helper. Patient completes activity by themselves 4 Supervision or touching assist (CGA). [place] provide cues , steadying assist 3 The helper provides less than half the effort to complete the activity 2 The helper provides more than half the effort to complete the activity 1 Dependent. The helper does all the effort to complete an activity 7 Patient refused to complete or attempt activity 9 The patient did not perform the activity before the current illness or injury 88 Not attempted due to Medical conditions or safety concerns Transfers (B, C, W/C) (FIM): 5 Scootin Rollin Roll Left to Right (QC): 5 Supine to/from Sit: 5 Sit to/from Stand: 5 Sit to Lying (QC): 5 Sit to Stand (QC): 5 Chair/Jkk-hw-Farju Xfer(QC): 5 Bed to/from Chair: 5 Car Transfer (QC): 5 Weight Bearing Right Lower Extremity: Right Weight Bearing/Tolerated Left Lower Extremity: Left Weight Bearing/Tolerated Gait Training Does the Patient Walk?: Yes Gait (FIM): 5 Distance (FIM): 3=150 ft Distance: 6 Walk 10 feet (QC): 6 Walk 50 ft with 2 Turns(QC): 6 Walk 150 ft (QC): 6 Walking 10ft/uneven surface-QC: 6 Gait Level of Assist: 6 Gait Persons Needed: 1 Gait Assistive Device: FWW Pt walks with slightly antalgic gait pattern due to discomfort in low back. Wheelchair Training Does the Pt Use a Wheelchair?: No Stair Training Stair Training: Handrails/: 2 handrails Stairs (FIM): 5 #of Steps: 12 1 Step (curb) (QC): 5 4 Steps (QC): 5 12 Steps (QC): 5 Stairs: Pattern: Step to Level of Assist: 5 Balance Picking up an Object (QC): 88 Special Test Comments Pt has back precautions so this isn't completed due to safety concern/medical condition. Exercises Seated Therapy Exercises: Ankle pumps, Long arc quads, Hip flexion, Kicking activity, Hip abd/add (10) Seated Reps: 20 Standing: Hamstring curls, Heel/toe raises, 3 way Ex=Flex, Abd, Ext (10) Standing Reps: 20 Treatments Pt transfers from bed to standing using FWW at [facility]. Pt ambulates in hallway using FWW at [facility]. Pt completes walking across varying surface for at least 10 ', 3 sets of 4 stairs, car transfer & bed mobility. Pt returns to room at end of tx to rest Supine in bed at end of tx with all needs met. Assessment Current Status: Good Progress Pt doesn't allow pain to limit participation during tx. PT Short Term Goals Short Term Goals Time Frame: Aug 15, 2017 Transfers (B,C,W/C) (FIM): 6 Gait (FIM): 5 Gait Distance Comment: >300' Gait Level of Assist: 5 Gait Assistive Device: FWW PT Alf Goals Alf Goals PT Alf Goals Time Frame: Aug 29, 2017 Transfers (B,C,W/C) (FIM): 6 Sit to Lying (QC): 6 Lying-Sitting on Side/Bed(QC): 6 Sit to Stand (QC): 6 Rollin Roll Left to Right (QC): 6 Car Transfer (QC): 4 Gait (FIM): 6 Distance: 400' Walk 10 feet (QC): 6 Walk 10ft-Uneven Surface(QC): 6 Walk 50ft with 2 Turns (QC): 6 Walk 150 ft (QC): 6 Gait Assistive Device: FWW Stairs (FIM): 2 # of Steps: 4 1 Step (curb) (QC): 4 4 Steps (QC): 4 Stairs Level Of Assist: 5 PT Plan Problem List Problem List: Activity Tolerance, Functional Strength, Safety, Transfer Treatment/Plan Treatment Plan: Continue Plan of Care Treatment Plan: Bed Mobility, Education, Functional Activity Alejandro, Functional Strength, Group Therapy, Gait, Safety, Therapeutic Exercise, Transfers Treatment Duration: Aug 29, 2017 Frequency: At least 5 of 7 days/Wk (IRF) Estimated Hrs Per Day: 1.5 hours per day Patient and/or Family Agrees t: Yes Safety Risks/Education Patient Education: Gait Training, Transfer Techniques, Correct Positioning, Safety Issues Teaching Recipient: Patient Teaching Methods: Discussion Response to Teaching: Verbalize Understanding Time/GCodes Time In: 915 Time Out: 1015 Total Billed Treatment Time: 60 Total Billed Treatment 1, GT x2 (30m), Ex (15m) & FA (15m) JUAN J GUPTA PRODUCTION DEPARTMENT SUPERVISOR Aug 14, 2017 12:10
--- NOTE | 2017-08-14 13:03 | Occupational Ther Daily Note ---
OT Current Status-Daily Note Subjective Pt in bed, agrees to treatment. Pt reports 4/10 back pain. Mental Status/Objective Functional [place] Measure 0=Not Assessed/NA 4=Minimal Assistance 1=Total Assistance 5=Supervision or Setup 2=Maximal Assistance 6=Modified [place] 3=Moderate Assistance 7=Complete [place] ADL-Treatment Pt requesting to use restroom when therapist arrives. Pt mod assist to don brace at bed level. Pt able to secure straps on front of brace. Supine to sit with modified independence. Sit to stand with modified independence. Gait to restroom with FWW. Pt transferred to [facility] over toilet with supervision using grab bars for safety. Pt able to manage clothing and toileting hygiene with modified independence. Stood at sink for grooming tasks. Pt washed hands, brushed teeth, and combed hair with modified independence. Shower not completed at this time secondary to strict requirement that pt wear back brace at all times unless flat in bed. Pt agrees to bathing and dressing at bed level. Pt sit to supine with modified independence. Doff brace with min assist. Pt doffed shirt with SBA. Upper body bathing completed with set up. Pt doffed pants with SBA. Pt able to complete lower body bathing with SBA and cues for technique. Pt applied deodorant with set up. Don pullover shirt with SBA. Pt donned underwear and pants with SBA, rolling for pant hike. Pt donned brace in supine with mod assist. Pt donned shoes with SBA and cues for safety while seated EOB. Functional [place] Measure 0=Not Assessed/NA 4=Minimal Assistance 1=Total Assistance 5=Supervision or Setup 2=Maximal Assistance 6=Modified [place] 3=Moderate Assistance 7=Complete IndependenceIRFPAI Quality Coding Scale 6 Independent with activity with or without an assistive device 5 Patient requires set up or clean up by helper. Patient completes activity by themselves 4 Supervision or touching assist (CGA). [place] provide cues , steadying assist 3 The helper provides less than half the effort to complete the activity 2 The helper provides more than half the effort to complete the activity 1 Dependent. The helper does all the effort to complete an activity 7 Patient refused to complete or attempt activity 9 The patient did not perform the activity before the current illness or injury 88 Not attempted due to Medical conditions or safety concerns Eating (FIM): 6 (Pt reports feeding self, managing containers, and cutting food without assistance.) Eating (QC): 6 Grooming (FIM): 6 Oral Hygiene (QC): 6 Bathing (FIM): 5 Shower/Bathe Self (QC): 4 Upper Body (FIM): 3 (Mod assist to don brace in supine) Upper Body Dressing (QC): 3 Lower Body Dressing (FIM): 5 Lower Body Dressing (QC): 4 On/Off Footwear (QC): 4 Toileting (FIM): 6 Toileting Hygiene (QC): 6 Toilet/Commode Transfer (FIM): 5 Toilet Transfer (QC): 5 Shower Transfer(FIM): 0 (unable at this time secondary to requirement pt wear back brace at all times.) Other Treatment Gait to therapy gym with FWW. Arm bike x5 minutes to increase overall strength and activity tolerance needed for functional tasks. Pt completes activity without rest break, but then requests to get up and walk secondary to discomfort sitting. Pt ambulated around therapy unit with FWW, no LOB noted. Pt completed peg activity with alternating arms while seated to improve strength and activity tolerance. Graded clothespin activity with bilateral hands to increase caustic operator/pinch strength. Pt completed putty activity with bilateral hands to increase strength and coordination. Pt able to remove small beads from putty without assistance. Pt requests to return to bed secondary to discomfort. Pt sit to supine with modified independence. In bed with needs met after session. OT Short Term Goals Short Term Goals Time Frame: Aug 14, 2017 Eating(FIM): 6 Grooming(FIM): 6 Bathing(FIM): 5 Upper Body Dressing(FIM): 5 Lower Body Dressing(FIM): 5 Toileting(FIM): 5 Transfers (B,C,W/C) (FIM): 6 Toilet/Commode Transfer(FIM): 5 Shower Transfer(FIM): 4 Additional Short Term Goals: 1-Demonstrate ADL Tasks, 2-Verbalize Understanding , 3-ImproveStrength/Alejandro 1=Demonstrate adherence to instructed precautions during ADL tasks. 2=Patient will verbalize/demonstrate understanding of assistive devices/ modifications for ADL. 3=Patient will improve strength/tolerance for activity to enable patient to perform ADL's. OT Retirement Goals Architectural Superintendent Goals Time Frame: Aug 21, 2017 Eating (FIM): 6 (met 08/14/17) Eating (QC): 6 (6-MET) Groomin (met08/14/17) Oral Hygiene (QC): 6 (6-MET) Bathing(FIM): 5 (met 08/14/17) Shower/Bathe Self (QC): 5 (4-not met) Upper Body Dressing(FIM): 6 (not met) Upper Body Dressing (QC): 5 (not met) Lower Body Dressing(FIM): 6 (not met) Lower Body Dressing (QC): 5 (not met) On/Off Footwear (QC): 5 (not met) Toileting(FIM): 6 (met 08/14/17) Toileting Hygiene (QC): 6 (6-MET) Transfers (B,C,W/C) (FIM): 6 Toilet/Commode Transfer(FIM): 6 (not met) Toilet/Commode Transfer (QC): 5 Shower Transfer(FIM): 5 (not met) Additional Goals: 1-Demonstrate ADL Tasks, 2-Verbalize Understanding, 3- ImproveStrength/Alejandro 1=Demonstrate adherence to instructed precautions during ADL tasks. 2=Patient will verbalize/demonstrate understanding of assistive devices/ modifications for ADL. 3=Patient will improve strength/tolerance for activity to enable patient to perform ADL's. OT Education/Plan Discharge Recommendations Plan/Recommendations: Continue POC Treatment Plan/Plan of Care Patient would benefit from OT for education, treatment and training to promote independence in ADL's, mobility, safety and/or upper extremity function for ADL' s. Plan of Care: ADL Retraining, Functional Mobility, Group Exercise/Act as Ind, UE Funct Exercise/Act Treatment Duration: Aug 21, 2017 Frequency: At least 5 of 7 days/Wk (IRF) Estimated Hrs Per Day: 1.5 hours per day Agreement: Yes Rehab Potential: Fair Time/GCodes Start Time: 08:00 Stop Time: 09:15 Total Time Billed (hr/min): 75 Billed Treatment Time 1 visit, ADLx2(30minutes), FAx3(45minutes) KENZIE ROTH OT Aug 14, 2017 13:03
--- NOTE | 2017-08-14 13:21 | Occupational Ther Daily Note ---
OT Current Status-Daily Note Subjective Pt in bed, agrees to treatment. Pt reports 4/10 back pain. Mental Status/Objective Functional [place] Measure 0=Not Assessed/NA 4=Minimal Assistance 1=Total Assistance 5=Supervision or Setup 2=Maximal Assistance 6=Modified [place] 3=Moderate Assistance 7=Complete [place] ADL-Treatment Functional [place] Measure 0=Not Assessed/NA 4=Minimal Assistance 1=Total Assistance 5=Supervision or Setup 2=Maximal Assistance 6=Modified [place] 3=Moderate Assistance 7=Complete IndependenceIRFPAI Quality Coding Scale 6 Independent with activity with or without an assistive device 5 Patient requires set up or clean up by helper. Patient completes activity by themselves 4 Supervision or touching assist (CGA). [place] provide cues , steadying assist 3 The helper provides less than half the effort to complete the activity 2 The helper provides more than half the effort to complete the activity 1 Dependent. The helper does all the effort to complete an activity 7 Patient refused to complete or attempt activity 9 The patient did not perform the activity before the current illness or injury 88 Not attempted due to Medical conditions or safety concerns Other Treatment Pt required mod assist to don back brace at bed level. Supine to sit with modified independence. Gait to therapy gym with FWW. Pt completed fine motor task with nuts and bolts while seated to increase UE activity tolerance and coordination/manipulation skills. Pt returned to room, transferred to sit to supine with modified independence. Mod assist to doff brace while in supine. Pt resting in bed with needs met and family present after session. Plan is for pt to d/c home tomorrow with family support. Pt has no questions or concerns at this time. OT Short Term Goals Short Term Goals Time Frame: Aug 14, 2017 Eating(FIM): 6 Grooming(FIM): 6 Bathing(FIM): 5 Upper Body Dressing(FIM): 5 Lower Body Dressing(FIM): 5 Toileting(FIM): 5 Transfers (B,C,W/C) (FIM): 6 Toilet/Commode Transfer(FIM): 5 Shower Transfer(FIM): 4 Additional Short Term Goals: 1-Demonstrate ADL Tasks, 2-Verbalize Understanding , 3-ImproveStrength/Alejandro 1=Demonstrate adherence to instructed precautions during ADL tasks. 2=Patient will verbalize/demonstrate understanding of assistive devices/ modifications for ADL. 3=Patient will improve strength/tolerance for activity to enable patient to perform ADL's. OT Perlite Grinder Goals Perlite Grinder Goals Time Frame: Aug 21, 2017 Eating (FIM): 6 (met 08/14/17) Eating (QC): 6 (6-MET) Groomin (met08/14/17) Oral Hygiene (QC): 6 (6-MET) Bathing(FIM): 5 (met 08/14/17) Shower/Bathe Self (QC): 5 (4-not met) Upper Body Dressing(FIM): 6 (not met) Upper Body Dressing (QC): 5 (not met) Lower Body Dressing(FIM): 6 (not met) Lower Body Dressing (QC): 5 (not met) On/Off Footwear (QC): 5 (not met) Toileting(FIM): 6 (met 08/14/17) Toileting Hygiene (QC): 6 (6-MET) Transfers (B,C,W/C) (FIM): 6 Toilet/Commode Transfer(FIM): 6 (not met) Toilet/Commode Transfer (QC): 5 Shower Transfer(FIM): 5 (not met) Additional Goals: 1-Demonstrate ADL Tasks, 2-Verbalize Understanding, 3- ImproveStrength/Alejandro 1=Demonstrate adherence to instructed precautions during ADL tasks. 2=Patient will verbalize/demonstrate understanding of assistive devices/ modifications for ADL. 3=Patient will improve strength/tolerance for activity to enable patient to perform ADL's. OT Education/Plan Discharge Recommendations Plan/Recommendations: Continue POC Treatment Plan/Plan of Care Patient would benefit from OT for education, treatment and training to promote independence in ADL's, mobility, safety and/or upper extremity function for ADL' s. Plan of Care: ADL Retraining, Functional Mobility, Group Exercise/Act as Ind, UE Funct Exercise/Act Treatment Duration: Aug 21, 2017 Frequency: At least 5 of 7 days/Wk (IRF) Estimated Hrs Per Day: 1.5 hours per day Agreement: Yes Rehab Potential: Fair Time/GCodes Start Time: 11:30 Stop Time: 11:45 Total Time Billed (hr/min): 15 Billed Treatment Time 1 visit, FA(15minutes) KENZIE ROTH OT Aug 14, 2017 13:21
[2017-08-14] MEDS: ENOXAPARIN 40 MG/0.4 ML (LOVENOX) SYR SC SCH (13:32)
--- NOTE | 2017-08-14 14:08 | Physical Therapy Daily Note ---
PT Daily Note-Current Subjective Pt laying Supine in bed upon arrival. Pt agrees to Supine Ex for tx. Pain Numeric Pain Scale: 4 Location: Lower Location Body Site: Back Pain Description: Ache, Tightness Mental Status Patient Orientation: Person, Place, Time, Situation Transfers Functional [place] Measure 0=Not Assessed/NA 4=Minimal Assistance 1=Total Assistance 5=Supervision or Setup 2=Maximal Assistance 6=Modified [place] 3=Moderate Assistance 7=Complete IndependenceIRFPAI Quality Coding Scale 6 Independent with activity with or without an assistive device 5 Patient requires set up or clean up by helper. Patient completes activity by themselves 4 Supervision or touching assist (CGA). [place] provide cues , steadying assist 3 The helper provides less than half the effort to complete the activity 2 The helper provides more than half the effort to complete the activity 1 Dependent. The helper does all the effort to complete an activity 7 Patient refused to complete or attempt activity 9 The patient did not perform the activity before the current illness or injury 88 Not attempted due to Medical conditions or safety concerns Weight Bearing Right Lower Extremity: Right Weight Bearing/Tolerated Left Lower Extremity: Left Weight Bearing/Tolerated Exercises Supine Ex: Ankle pumps, Quad Set, Heel Slides, Straight leg raise, Hip abd/add Supine Reps: 20 Treatments Pt completes Supine Ex in bed for tx. Pt rests at end of tx with all needs met. Assessment Current Status: Good Progress Pt able to complete Supine Ex with minimal pain. PT Short Term Goals Short Term Goals Time Frame: Aug 15, 2017 Transfers (B,C,W/C) (FIM): 6 Gait (FIM): 5 Gait Distance Comment: >300' Gait Level of Assist: 5 Gait Assistive Device: FWW PT Hand Bunch Maker Goals Snf Goals PT Hand Bunch Maker Goals Time Frame: Aug 29, 2017 Transfers (B,C,W/C) (FIM): 6 Sit to Lying (QC): 6 Lying-Sitting on Side/Bed(QC): 6 Sit to Stand (QC): 6 Rollin Roll Left to Right (QC): 6 Car Transfer (QC): 4 Gait (FIM): 6 Distance: 400' Walk 10 feet (QC): 6 Walk 10ft-Uneven Surface(QC): 6 Walk 50ft with 2 Turns (QC): 6 Walk 150 ft (QC): 6 Gait Assistive Device: FWW Stairs (FIM): 2 # of Steps: 4 1 Step (curb) (QC): 4 4 Steps (QC): 4 Stairs Level Of Assist: 5 PT Plan Problem List Problem List: Activity Tolerance, Functional Strength Treatment/Plan Treatment Plan: Continue Plan of Care Treatment Plan: Bed Mobility, Education, Functional Activity Alejandro, Functional Strength, Group Therapy, Gait, Safety, Therapeutic Exercise, Transfers Treatment Duration: Aug 29, 2017 Frequency: At least 5 of 7 days/Wk (IRF) Estimated Hrs Per Day: 1.5 hours per day Patient and/or Family Agrees t: Yes Safety Risks/Education Patient Education: Transfer Techniques, Correct Positioning, Safety Issues Teaching Recipient: Patient Teaching Methods: Discussion Response to Teaching: Verbalize Understanding Time/GCodes Time In: 1330 Time Out: 1400 Total Billed Treatment Time: 30 Total Billed Treatment 1, EX x2 (30m) JUAN J GUPTA CRIME LAB TECHNICIAN Aug 14, 2017 14:08
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
[2017-08-14 19:00] VITALS: BP 130/81
[2017-08-14] MEDS: inSUlin DETERMIR 1 UNIT/0.01 ML (LEVEMIR) CHARGE PER UNIT SQ SCH (20:54)
[2017-08-14] MEDS: LIDODERM PATCH REMOVAL TP SCH (20:54)
[2017-08-15] MEDS: IBUPROFEN 600 MG (MOTRIN) TAB PO PRN (00:11)
[2017-08-15] MEDS: HYDROmorphone (DILAUDID) 2 MG TAB PO SCH ×2 (04:56→08:19)
[2017-08-15] MEDS: inSUlin ASPART (NovoLOG) 1 UNIT/0.01 ML (CHARGE PER UNIT) SC SCH (05:30)
[2017-08-15 05:54] VITALS: BP 125/79
[2017-08-15] MEDS: GLIMEPIRIDE 4 MG (AMARYL) TAB PO SCH (06:20)
[2017-08-15] MEDS: metFORMIN 500 MG (GLUCOPHAGE) TAB PO SCH (06:20)
[2017-08-15] MEDS: SENNA W/DOCUSATE (SENOKOT S) TABLET PO SCH (07:52)
[2017-08-15] MEDS: DOCUSATE SODIUM 100 MG (COLACE) CAP PO SCH (07:52)
[2017-08-15] MEDS: POLYETHYLENE GLYCOL 17 GM (MIRALAX) PACK PO SCH (07:52)
[2017-08-15] MEDS: lisINopril 20 MG (ZESTRIL) TAB PO SCH (08:18)
[2017-08-15] MEDS: LIDOCAINE (LIDODERM) 5% PATCH TOP SCH (08:18)
[2017-08-15] MEDS: LINAGLIPTIN (TRADJENTA) 5 MG TABLET PO SCH (08:19)
[2017-08-15] MEDS: MULTIVIT W/MINERALS TAB (THERAGRAN M) PO SCH (08:19)
[2017-08-15] MEDS: amLODIPine 5 MG (NORVASC) TAB PO SCH (08:19)
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
[2017-08-15 10:23] VITALS: BP 125/79
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
== END 2017-08-15 10:23 | disposition home health service (06) | DRG 560 ==
PROVIDERS: ADMIT Physical Medicine & Rehabilitation; ATTEND Physical Medicine & Rehabilitation
DX: S32.011D Stable burst fracture of first lumbar vertebra, subsequent encounter for fracture with routine healing (principal); E11.9 Type 2 diabetes mellitus without complications; I10 Essential (primary) hypertension; F10.239 Alcohol dependence with withdrawal, unspecified; K59.00 Constipation, unspecified; V89.2XXD Person injured in unspecified motor-vehicle accident, traffic, subsequent encounter
CPT/HCPCS: 82962

== ENCOUNTER → 2020-11-29 | Outpatient (CLI) | payer BC ==
[~2020-11-29] VITALS: Ht 180 cm; Wt 73.0 kg
[~2020-11-29] MED LIST changes: +AMLO-250 PO; +CATHETER FLUSH 10 ML SYR IV PRN; -GLIM4TAB PO; +GLIM4TAB5 PO; -HYDR-3454 PO; +HYDR-3455 PO; +HYDR2TAB6 PO; +LISI-729 PO; +LISI20TA26 PO; +Multivitamins/Minerals Therap PO; +POLY17PO54 PO; +REGADENOSON 0.4 MG/5 ML SYR (LEXISCAN) IV ONE; +SENN-20 PO
[2020-11-29 08:08] VITALS: BP 155/95
--- NOTE | 2020-11-29 12:11 | Cardiology Stress Test Report ---
Stress Test Report Date of Procedure/Referring: Date of Procedure: Nov 29, 2020 PCP Hermilo Carrasco DO Admitting Physician Hermilo Carrasco DO Baseline Vital Signs Vital Signs Date Time Temp Pulse Resp B/P (MAP) Pulse Ox O2 Delivery O2 Flow Rate FiO2 11/29/20 08:08 77 18 155/95 (115) 99 Room Air Summary: Patient receive a resting and stress dose of Myoview, images were acquired and reviewed in the short axis view, horizontal long axis view and vertical long axis view. TID: 1.05 SSS: 1 SDS: 1 EF: 55 1. No significant ischemia or infarction on SPECT images 2. Normal left ventricular size, EF 55 percent LAYLA ALAMO MD Nov 29, 2020 12:11
== END ==
LOC: CARD 06:46
PROVIDERS: ATTEND Internal Medicine
DX: I10 Essential (primary) hypertension (principal)
CPT/HCPCS: 78452; 93017; A9502